=== PATIENT | male | born 1980 | race Caucasian/White ===

== ENCOUNTER 2020-04-03 16:30 | Inpatient (IN) ==
[2020-04-03 17:28] LABS: ABS Lymphocytes 0.5 10^3/ul (1.0-4.8); ABS Neutrophils 1.9 10^3/ul (1.5-7.7); Eosinophil % 0.5 %; Hematocrit 20 % (42-52); Hemoglobin 6.5 g/dL (14.0-18.0); Lymphocyte % 19.6 %; Mean Corpuscular HGB Conc 33 g/dL (31-36); Mean Corpuscular Hemoglobin 33 pg (27-31); Mean Corpuscular Volume 99 fL (80-94); Mean Platelet Volume 8.8 fL (7.4-10.4); Platelet Count 119 10^3/uL (150-450); Red Blood Count 1.99 10^6 /uL (4.18-5.48); Red Cell Distribution Width 15 % (10-15); White Blood Count 2.4 10^3/uL (3.5-10.8)
[2020-04-03 17:40] LABS: ALT 51 U/L (7-52); AST 39 U/L (13-39); Albumin 2.6 g/dL (3.2-5.2); Albumin/Globulin Ratio 1.2 (1-3); Alkaline Phosphatase 54 U/L (34-104); Anion Gap 5 mmol/L (2-11); BUN/Creatinine Ratio 33.7 (8-20); Blood Urea Nitrogen 30 mg/dL (6-24); C Reactive Protein 32.46 mg/L (<8.01); CO2 Carbon Dioxide 26 mmol/L (22-32); Calcium 7.7 mg/dL (8.6-10.3); Chloride 104 mmol/L (101-111); EGFR African American 115.1 (>60); EGFR Non-African American 95.2 (>60); Globulin 2.1 g/dL (2-4); Glucose 97 mg/dL (70-100); Potassium 4.6 mmol/L (3.5-5.0); Sodium 135 mmol/L (135-145); Total Protein 4.7 g/dL (6.4-8.9)
[2020-04-03 17:43] LABS: Activated Partial Thrombo Time 23.4 seconds (26.0-38.0); INR 1.06 (0.82-1.09)
[2020-04-03 17:47] LABS: Troponin I 0.04 ng/mL (<0.03)
[2020-04-03 18:41] LABS: Influenza A Molecular Negative (Negative); Influenza B Molecular Negative (Negative)
[2020-04-03 18:50] LABS: Urine Appearance Clear; Urine Bacteria Absent (Absent); Urine Bilirubin Negative (Negative); Urine Blood Negative (Negative); Urine Cellular Casts Present (Absent); Urine Color Yellow; Urine Glucose 1+(50 mg/dL) (Negative); Urine Ketones Negative (Negative); Urine Nitrite Negative (Negative); Urine Protein Negative (Negative); Urine Red Blood Cell Trace(0-2/hpf) (Absent); Urine Specific Gravity 1.019 (1.010-1.030); Urine Squamous Epithelial Cell Present (Absent); Urine Urobilinogen Negative (Negative); Urine White Blood Cell Trace(0-5/hpf) (Absent)
[2020-04-03] MEDS ORDERED: Ciprofloxacin 400mg IVPREMIX 400 MG/200 ML BAG IVPB ONE (18:59)
[2020-04-03] MEDS ORDERED: Vancomycin 1,500 MG in NS 0.9% 250 ml 250 ML IVPB ONE (18:59)
[2020-04-03] MEDS ORDERED: Cefepime 2 GM in Dextrose 2 GM/50 ML BAG IV ONE (18:59)
[2020-04-03] MEDS ORDERED: NS 0.9% IV ONE (19:00)
[2020-04-03] MEDS ORDERED: Albuterol 2.5mg/3 ml (0.083%) NEB.SOLN INH PRN (21:20)
[2020-04-03] MEDS ORDERED: Vancomycin per Pharmacy 1 EA NOTE FOLLOW UP SCH (22:00)
[2020-04-03] MEDS ORDERED: Cefepime 2 GM in Dextrose 2 GM/50 ML BAG IV SCH (22:00)
[2020-04-04] MEDS: Pantoprazole VIAL 40 MG VIAL IV SCH ×2 (01:51→22:19)
[2020-04-04 08:26] LABS: BUN/Creatinine Ratio 32.1 (8-20); Calcium 7.2 mg/dL (8.6-10.3); EGFR African American 134.1 (>60); EGFR Non-African American 110.8 (>60); Potassium 4.2 mmol/L (3.5-5.0)
[2020-04-04 08:58] LABS: Hematocrit 20 % (42-52); Hemoglobin 6.5 g/dL (14.0-18.0); Mean Corpuscular HGB Conc 33 g/dL (31-36); Mean Corpuscular Hemoglobin 33 pg (27-31); Mean Corpuscular Volume 99 fL (80-94); Red Blood Count 1.98 10^6 /uL (4.18-5.48); Red Cell Distribution Width 15 % (10-15); White Blood Count 1.6 10^3/uL (3.5-10.8)
[2020-04-04] MEDS: Cefepime 2 GM in Dextrose 2 GM/50 ML BAG IV SCH ×2 (09:45→20:46)
[2020-04-04] MEDS: VANCOMYCIN 1250 MG IVPB SCH ×2 (09:45→17:30)
[2020-04-04 10:15] LABS: ABS Lymphocytes 0.6 10^3/ul (1.0-4.8); Lymphocyte % 35.3 %; Mean Platelet Volume 8.2 fL (7.4-10.4); Nucleated Red Blood Cells % 0.1; Platelet Count 77 10^3/uL (150-450)
[2020-04-05] MEDS: VANCOMYCIN 1250 MG IVPB SCH ×2 (01:14→10:45)
[2020-04-05 06:29] LABS: Hematocrit 20 % (42-52); Hemoglobin 6.5 g/dL (14.0-18.0); Mean Corpuscular HGB Conc 33 g/dL (31-36); Mean Corpuscular Hemoglobin 32 pg (27-31); Mean Corpuscular Volume 97 fL (80-94); Mean Platelet Volume 8.9 fL (7.4-10.4); Platelet Count 68 10^3/uL (150-450); Red Blood Count 2.01 10^6 /uL (4.18-5.48); Red Cell Distribution Width 15 % (10-15)
[2020-04-05 06:36] LABS: Anion Gap 4 mmol/L (2-11); BUN/Creatinine Ratio 20.7 (8-20); Blood Urea Nitrogen 17 mg/dL (6-24); CO2 Carbon Dioxide 24 mmol/L (22-32); Calcium 7.5 mg/dL (8.6-10.3); Chloride 108 mmol/L (101-111); EGFR African American 126.6 (>60); EGFR Non-African American 104.6 (>60); Glucose 90 mg/dL (70-100); Magnesium 1.5 mg/dL (1.9-2.7); Sodium 136 mmol/L (135-145)
[2020-04-05] MEDS ORDERED: Magnesium Sulfate IV 3 GM in NS 0.9% 100 ml BAG 100 ML IVPB ONE (06:56)
[2020-04-05 07:53] LABS: ABS Lymphocytes 0.5 10^3/ul (1.0-4.8); ABS Neutrophils 0.4 10^3/ul (1.5-7.7); Eosinophil % 0.4 %; Lymphocyte % 50.6 %; Nucleated Red Blood Cells % 0.2
[2020-04-05 08:01] LABS: ALT 39 U/L (7-52); AST 36 U/L (13-39); Albumin 2.6 g/dL (3.2-5.2); Albumin/Globulin Ratio 1.2 (1-3); Alkaline Phosphatase 52 U/L (34-104); Globulin 2.1 g/dL (2-4); Total Protein 4.7 g/dL (6.4-8.9)
[2020-04-05 08:28] LABS: LDH 289 U/L (140-271)
[2020-04-05] MEDS ORDERED: NS 0.9% 100 ml BAG 100 ML ONE (08:28)
[2020-04-05] MEDS ORDERED: Vancomycin Trough Check NOTE FOLLOW UP ONE (08:30)
[2020-04-05] MEDS: Cefepime 2 GM in Dextrose 2 GM/50 ML BAG IV SCH ×2 (08:42→21:07)
[2020-04-05 09:40] LABS: Vancomycin Trough 19.5 mcg/mL
[2020-04-05 10:53] LABS: % Iron Saturation 64 % (15-55); Iron 139 ug/dL (50-212); Total Iron Binding Capacity 216 mcg/dL (250-450); Transferrin 154 mg/dL (203-362); Unsaturated Iron Binding < 201 ug/dL
[2020-04-05] MEDS: Vancomycin 1000 MG in NS 0.9% 250 ML IVPB SCH (17:40)
[2020-04-05] MEDS: Pantoprazole VIAL 40 MG VIAL IV SCH (21:05)
[2020-04-05 22:33] LABS: Hematocrit 24 % (42-52); Mean Corpuscular HGB Conc 33 g/dL (31-36); Mean Corpuscular Hemoglobin 32 pg (27-31); Mean Corpuscular Volume 95 fL (80-94); Mean Platelet Volume 9.1 fL (7.4-10.4); Platelet Count 57 10^3/uL (150-450); Red Blood Count 2.51 10^6 /uL (4.18-5.48); Red Cell Distribution Width 17 % (10-15); White Blood Count 0.9 10^3/uL (3.5-10.8)
[2020-04-06] MEDS: Vancomycin 1000 MG in NS 0.9% 250 ML IVPB SCH ×2 (01:49→09:43)
[2020-04-06 07:21] LABS: Hematocrit 25 % (42-52); Hemoglobin 8.6 g/dL (14.0-18.0); Mean Corpuscular HGB Conc 34 g/dL (31-36); Mean Corpuscular Hemoglobin 32 pg (27-31); Mean Corpuscular Volume 94 fL (80-94); Mean Platelet Volume 9.6 fL (7.4-10.4); Platelet Count 49 10^3/uL (150-450); Red Blood Count 2.66 10^6 /uL (4.18-5.48); Red Cell Distribution Width 18 % (10-15); White Blood Count 0.6 10^3/uL (3.5-10.8)
[2020-04-06 07:28] LABS: BUN/Creatinine Ratio 18.9 (8-20); Calcium 7.4 mg/dL (8.6-10.3); EGFR African American 142.5 (>60); EGFR Non-African American 117.7 (>60); Potassium 3.9 mmol/L (3.5-5.0)
[2020-04-06] MEDS: Cefepime 2 GM in Dextrose 2 GM/50 ML BAG IV SCH ×2 (08:09→21:56)
[2020-04-06 08:14] LABS: Magnesium 1.8 mg/dL (1.9-2.7)
[2020-04-06 08:58] LABS: ABS Neutrophils 0.3 10^3/ul (1.5-7.7)
[2020-04-06] MEDS: Pantoprazole VIAL 40 MG VIAL IV SCH (21:56)
[2020-04-07] MEDS: Pantoprazole VIAL 40 MG VIAL IV SCH ×2 (00:52→22:39)
[2020-04-07] MEDS: Cefepime 2 GM in Dextrose 2 GM/50 ML BAG IV SCH ×3 (00:52→12:26)
[2020-04-07] MEDS ORDERED: Magnesium Sulfate 2 gm BAG 2 GM/50 ML BAG IVPB ONE (06:58)
[2020-04-07 07:25] LABS: Albumin 2.6 g/dL (3.2-5.2); Albumin/Globulin Ratio 1.2 (1-3); BUN/Creatinine Ratio 18.8 (8-20); Calcium 7.4 mg/dL (8.6-10.3); EGFR African American 168.5 (>60); EGFR Non-African American 139.2 (>60); Globulin 2.1 g/dL (2-4); Magnesium 1.5 mg/dL (1.9-2.7); Total Bilirubin 0.6 mg/dL (0.2-1.0); Total Protein 4.7 g/dL (6.4-8.9)
[2020-04-07 09:19] LABS: ABS Lymphocytes 0.5 10^3/ul (1.0-4.8); ABS Monocytes 0.1 10^3/ul (0-0.8); Hematocrit 24 % (42-52); Hemoglobin 8.2 g/dL (14.0-18.0); Lymphocyte % 77.6 %; Mean Corpuscular HGB Conc 34 g/dL (31-36); Mean Corpuscular Hemoglobin 31 pg (27-31); Mean Corpuscular Volume 93 fL (80-94); Mean Platelet Volume 9.2 fL (7.4-10.4); Platelet Count 29 10^3/uL (150-450); Red Blood Count 2.63 10^6 /uL (4.18-5.48); Red Cell Distribution Width 17 % (10-15); White Blood Count 0.6 10^3/uL (3.5-10.8)
[2020-04-07] MEDS ORDERED: Buffered Lidocaine 1% SYRIN 1 ml INTRADERM ONE (09:21)
[2020-04-07] MEDS ORDERED: Magnesium Sulfate 2 GM IV (Premix) IVPB ONE (13:00)
[2020-04-08] MEDS: Cefepime 2 GM in Dextrose 2 GM/50 ML BAG IV SCH ×2 (00:37→11:21)
[2020-04-08 11:50] LABS: Calcium 7.6 mg/dL (8.6-10.3); Magnesium 1.6 mg/dL (1.9-2.7); Potassium 4.2 mmol/L (3.5-5.0)
[2020-04-08 11:55] LABS: BUN/Creatinine Ratio 14.9 (8-20); EGFR African American 159.8 (>60); EGFR Non-African American 132.1 (>60)
[2020-04-08 13:00] LABS: Hematocrit 25 % (42-52); Hemoglobin 8.5 g/dL (14.0-18.0); Mean Corpuscular HGB Conc 34 g/dL (31-36); Mean Corpuscular Hemoglobin 31 pg (27-31); Mean Corpuscular Volume 92 fL (80-94); Mean Platelet Volume 8.2 fL (7.4-10.4); Platelet Count 16 10^3/uL (150-450); Red Blood Count 2.71 10^6 /uL (4.18-5.48); Red Cell Distribution Width 17 % (10-15); White Blood Count 0.6 10^3/uL (3.5-10.8)
[2020-04-08 14:41] LABS: ABS Lymphocytes 0.5 10^3/ul (1.0-4.8); ABS Monocytes 0.1 10^3/ul (0-0.8); Eosinophil % 0.1 %; Lymphocyte % 78.1 %
[2020-04-09] MEDS: Cefepime 2 GM in Dextrose 2 GM/50 ML BAG IV SCH ×3 (01:13→14:22)
[2020-04-09 06:11] LABS: BUN/Creatinine Ratio 17.9 (8-20); Calcium 8.1 mg/dL (8.6-10.3); EGFR African American 159.8 (>60); EGFR Non-African American 132.1 (>60); Magnesium 1.5 mg/dL (1.9-2.7); Potassium 4.1 mmol/L (3.5-5.0)
[2020-04-09 06:16] LABS: ABS Lymphocytes 0.6 10^3/ul (1.0-4.8); ABS Monocytes 0.1 10^3/ul (0-0.8); Hematocrit 23 % (42-52); Hemoglobin 7.6 g/dL (14.0-18.0); Lymphocyte % 80.4 %; Mean Corpuscular HGB Conc 34 g/dL (31-36); Mean Corpuscular Hemoglobin 31 pg (27-31); Mean Corpuscular Volume 92 fL (80-94); Mean Platelet Volume 8.8 fL (7.4-10.4); Platelet Count 10 10^3/uL (150-450); Red Blood Count 2.46 10^6 /uL (4.18-5.48); Red Cell Distribution Width 17 % (10-15); White Blood Count 0.7 10^3/uL (3.5-10.8)
[2020-04-09] MEDS ORDERED: Magnesium Sulfate IV 3 GM in NS 0.9% 100 ml BAG 100 ML IVPB ONE (08:00)
[2020-04-09 14:58] LABS: Mean Platelet Volume 7.1 fL (7.4-10.4); Platelet Count 40 10^3/uL (150-450)
[2020-04-10] MEDS: Cefepime 2 GM in Dextrose 2 GM/50 ML BAG IV SCH ×2 (02:52→15:43)
[2020-04-10 07:33] LABS: ABS Lymphocytes 0.6 10^3/ul (1.0-4.8); ABS Monocytes 0.2 10^3/ul (0-0.8); ABS Neutrophils 0.2 10^3/ul (1.5-7.7); Eosinophil % 0.2 %; Hematocrit 24 % (42-52); Hemoglobin 8.4 g/dL (14.0-18.0); Lymphocyte % 64.8 %; Mean Corpuscular HGB Conc 34 g/dL (31-36); Mean Corpuscular Hemoglobin 31 pg (27-31); Mean Corpuscular Volume 91 fL (80-94); Mean Platelet Volume 7.3 fL (7.4-10.4); Nucleated Red Blood Cells % 0.2; Platelet Count 28 10^3/uL (150-450); Red Blood Count 2.69 10^6 /uL (4.18-5.48); Red Cell Distribution Width 17 % (10-15)
[2020-04-10 07:41] LABS: BUN/Creatinine Ratio 20.3 (8-20); Calcium 8.3 mg/dL (8.6-10.3); EGFR African American 154.5 (>60); EGFR Non-African American 127.6 (>60); Magnesium 1.7 mg/dL (1.9-2.7); Potassium 4.3 mmol/L (3.5-5.0)
[2020-04-10] MEDS ORDERED: Magnesium Sulfate 2 gm BAG 2 GM/50 ML BAG IVPB ONE (07:42)
[2020-04-11] MEDS: Cefepime 2 GM in Dextrose 2 GM/50 ML BAG IV SCH ×2 (03:25→16:26)
[2020-04-11 07:25] LABS: ABS Lymphocytes 0.6 10^3/ul (1.0-4.8); ABS Monocytes 0.1 10^3/ul (0-0.8); ABS Neutrophils 0.3 10^3/ul (1.5-7.7); Hematocrit 23 % (42-52); Hemoglobin 7.8 g/dL (14.0-18.0); Lymphocyte % 59.2 %; Mean Corpuscular HGB Conc 34 g/dL (31-36); Mean Corpuscular Hemoglobin 31 pg (27-31); Mean Corpuscular Volume 91 fL (80-94); Mean Platelet Volume 7.1 fL (7.4-10.4); Nucleated Red Blood Cells % 0.2; Platelet Count 21 10^3/uL (150-450); Red Blood Count 2.52 10^6 /uL (4.18-5.48); Red Cell Distribution Width 17 % (10-15)
[2020-04-11] MEDS ORDERED: Magnesium Sulfate IV 3 GM in NS 0.9% 100 ml BAG 100 ML IVPB ONE (08:00)
[2020-04-12] MEDS: Cefepime 2 GM in Dextrose 2 GM/50 ML BAG IV SCH ×2 (03:28→15:30)
[2020-04-12 09:51] LABS: Hematocrit 28 % (42-52); Hemoglobin 9.1 g/dL (14.0-18.0); Mean Corpuscular HGB Conc 32 g/dL (31-36); Mean Corpuscular Hemoglobin 31 pg (27-31); Mean Corpuscular Volume 95 fL (80-94); Mean Platelet Volume 8.5 fL (7.4-10.4); Platelet Count 37 10^3/uL (150-450); Red Blood Count 2.97 10^6 /uL (4.18-5.48); Red Cell Distribution Width 17 % (10-15); White Blood Count 1.5 10^3/uL (3.5-10.8)
[2020-04-12 10:15] LABS: ABS Lymphocytes 0.9 10^3/ul (1.0-4.8); ABS Monocytes 0.2 10^3/ul (0-0.8); ABS Neutrophils 0.4 10^3/ul (1.5-7.7); Eosinophil % 1.6 %; Lymphocyte % 57.9 %
[2020-04-13] MEDS: Cefepime 2 GM in Dextrose 2 GM/50 ML BAG IV SCH ×2 (03:13→15:34)
[2020-04-13 06:57] LABS: Hematocrit 26 % (42-52); Hemoglobin 8.7 g/dL (14.0-18.0); Mean Corpuscular HGB Conc 34 g/dL (31-36); Mean Corpuscular Hemoglobin 31 pg (27-31); Mean Corpuscular Volume 92 fL (80-94); Mean Platelet Volume 8.4 fL (7.4-10.4); Platelet Count 53 10^3/uL (150-450); Red Blood Count 2.79 10^6 /uL (4.18-5.48); Red Cell Distribution Width 16 % (10-15); White Blood Count 1.5 10^3/uL (3.5-10.8)
[2020-04-13 07:31] LABS: ABS Lymphocytes 0.8 10^3/ul (1.0-4.8); ABS Monocytes 0.2 10^3/ul (0-0.8); ABS Neutrophils 0.5 10^3/ul (1.5-7.7); Eosinophil % 0.1 %; Lymphocyte % 53.2 %; Nucleated Red Blood Cells % 0.1
[2020-04-14] MEDS: Cefepime 2 GM in Dextrose 2 GM/50 ML BAG IV SCH ×2 (02:53→14:59)
[2020-04-14 07:13] LABS: Hematocrit 27 % (42-52); Mean Corpuscular HGB Conc 34 g/dL (31-36); Mean Corpuscular Hemoglobin 31 pg (27-31); Mean Corpuscular Volume 92 fL (80-94); Mean Platelet Volume 8.4 fL (7.4-10.4); Platelet Count 107 10^3/uL (150-450); Red Blood Count 2.87 10^6 /uL (4.18-5.48); Red Cell Distribution Width 16 % (10-15); White Blood Count 1.5 10^3/uL (3.5-10.8)
[2020-04-14 07:17] LABS: ABS Neutrophils 0.6 10^3/ul (1.5-7.7)
[2020-04-14 08:39] LABS: ABS Lymphocytes 0.6 10^3/ul (1.0-4.8); ABS Monocytes 0.2 10^3/ul (0-0.8); Eosinophil % 0.1 %; Lymphocyte % 43.8 %; Nucleated Red Blood Cells % 0.2
[2020-04-15] MEDS: Cefepime 2 GM in Dextrose 2 GM/50 ML BAG IV SCH ×2 (03:02→15:18)
[2020-04-15 05:40] LABS: Hematocrit 27 % (42-52); Hemoglobin 9.2 g/dL (14.0-18.0); Mean Corpuscular HGB Conc 34 g/dL (31-36); Mean Corpuscular Hemoglobin 31 pg (27-31); Mean Corpuscular Volume 91 fL (80-94); Platelet Count 181 10^3/uL (150-450); Red Blood Count 2.95 10^6 /uL (4.18-5.48); Red Cell Distribution Width 17 % (10-15); White Blood Count 1.8 10^3/uL (3.5-10.8)
[2020-04-15 06:16] LABS: ABS Lymphocytes 0.6 10^3/ul (1.0-4.8); ABS Monocytes 0.3 10^3/ul (0-0.8); ABS Neutrophils 0.9 10^3/ul (1.5-7.7); Eosinophil % 0.5 %; Lymphocyte % 34.5 %; Nucleated Red Blood Cells % 0.5
[2020-04-16] MEDS: Cefepime 2 GM in Dextrose 2 GM/50 ML BAG IV SCH (03:06)
[2020-04-16 06:29] LABS: ABS Lymphocytes 0.5 10^3/ul (1.0-4.8); ABS Monocytes 0.3 10^3/ul (0-0.8); ABS Neutrophils 1.1 10^3/ul (1.5-7.7); Eosinophil % 0.5 %; Hematocrit 27 % (42-52); Hemoglobin 9.2 g/dL (14.0-18.0); Mean Corpuscular HGB Conc 34 g/dL (31-36); Mean Corpuscular Hemoglobin 31 pg (27-31); Mean Corpuscular Volume 91 fL (80-94); Mean Platelet Volume 7.9 fL (7.4-10.4); Nucleated Red Blood Cells % 0.2; Platelet Count 256 10^3/uL (150-450); Red Blood Count 2.95 10^6 /uL (4.18-5.48); Red Cell Distribution Width 17 % (10-15); White Blood Count 1.9 10^3/uL (3.5-10.8)
[2020-04-16] MEDS ORDERED: Ondansetron 4 mg VIAL 2 MG/ML 2 ml VIAL IV PRN (14:29)
[2020-04-16] MEDS: Prochlorperazine 5 mg/ml 2 ml VIAL (10 mg) IV PRN (22:54)
[2020-04-17 05:45] LABS: ABS Lymphocytes 0.5 10^3/ul (1.0-4.8); ABS Monocytes 0.5 10^3/ul (0-0.8); ABS Neutrophils 1.4 10^3/ul (1.5-7.7); Eosinophil % 0.4 %; Hematocrit 27 % (42-52); Hemoglobin 9.4 g/dL (14.0-18.0); Lymphocyte % 19.8 %; Mean Corpuscular HGB Conc 34 g/dL (31-36); Mean Corpuscular Hemoglobin 31 pg (27-31); Mean Corpuscular Volume 90 fL (80-94); Mean Platelet Volume 7.5 fL (7.4-10.4); Nucleated Red Blood Cells % 0.1; Platelet Count 355 10^3/uL (150-450); Red Blood Count 3.03 10^6 /uL (4.18-5.48); Red Cell Distribution Width 17 % (10-15); White Blood Count 2.4 10^3/uL (3.5-10.8)
[2020-04-17] MEDS ORDERED: Magnesium Sulfate IV 3 GM in NS 0.9% 100 ml BAG 100 ML IVPB ONE (07:30)
[2020-04-17] MEDS: Enoxaparin 40 MG/0.4 ML SYR SUBCUT SCH (09:00)
[2020-04-17] MEDS: Prochlorperazine 5 mg/ml 2 ml VIAL (10 mg) IV PRN ×2 (12:52→20:22)
[2020-04-17] MEDS: Polyethylene Glycol 3350 17 GM PACKET PO PRN (12:52)
[2020-04-18 09:01] LABS: ABS Lymphocytes 0.4 10^3/ul (1.0-4.8); ABS Monocytes 0.6 10^3/ul (0-0.8); ABS Neutrophils 3.1 10^3/ul (1.5-7.7); Eosinophil % 0.3 %; Hematocrit 29 % (42-52); Hemoglobin 9.9 g/dL (14.0-18.0); Lymphocyte % 8.9 %; Mean Corpuscular HGB Conc 34 g/dL (31-36); Mean Corpuscular Hemoglobin 31 pg (27-31); Mean Corpuscular Volume 90 fL (80-94); Mean Platelet Volume 7.5 fL (7.4-10.4); Platelet Count 514 10^3/uL (150-450); Red Blood Count 3.24 10^6 /uL (4.18-5.48); Red Cell Distribution Width 17 % (10-15)
[2020-04-18] MEDS: Enoxaparin 40 MG/0.4 ML SYR SUBCUT SCH (09:06)
[2020-04-18] MEDS: Dexamethasone IV 4 MG/ML VIAL 1 ml VIAL IV SLOW PU SCH (11:37)
[2020-04-18] MEDS: Polyethylene Glycol 3350 17 GM PACKET PO PRN (21:18)
[2020-04-19 05:53] LABS: ABS Lymphocytes 0.5 10^3/ul (1.0-4.8); ABS Monocytes 0.7 10^3/ul (0-0.8); ABS Neutrophils 3.1 10^3/ul (1.5-7.7); Eosinophil % 0.2 %; Hematocrit 27 % (42-52); Hemoglobin 9.4 g/dL (14.0-18.0); Lymphocyte % 11.4 %; Mean Corpuscular HGB Conc 35 g/dL (31-36); Mean Corpuscular Hemoglobin 31 pg (27-31); Mean Corpuscular Volume 90 fL (80-94); Mean Platelet Volume 7.6 fL (7.4-10.4); Platelet Count 584 10^3/uL (150-450); Red Blood Count 3.02 10^6 /uL (4.18-5.48); Red Cell Distribution Width 17 % (10-15); White Blood Count 4.3 10^3/uL (3.5-10.8)
[2020-04-19] MEDS ORDERED: Magnesium Sulfate 2 gm BAG 2 GM/50 ML BAG IVPB ONE (07:45)
[2020-04-19] MEDS: Enoxaparin 40 MG/0.4 ML SYR SUBCUT SCH (09:04)
[2020-04-19] MEDS: Dexamethasone IV 4 MG/ML VIAL 1 ml VIAL IV SLOW PU SCH (09:09)
[2020-04-19 10:30] LABS: BUN/Creatinine Ratio 28.3 (8-20); Calcium 9.4 mg/dL (8.6-10.3); EGFR African American 110.8 (>60); EGFR Non-African American 91.6 (>60); Potassium 4.2 mmol/L (3.5-5.0)
[2020-04-19 19:57] VITALS: BP 150/89
[2020-04-20] MEDS ORDERED: Scopolamine PATCH Remove NOTE PATCH OFF SCH (16:00)
== END 2020-04-19 20:20 | DRG 871 ==
LOC: ED 16:30 → MED 23:26
PROVIDERS: ADMIT Hospitalist; ATTEND Internal Medicine

== ENCOUNTER 2020-04-20 22:39 | Inpatient (IN) ==
[2020-04-20] MEDS ORDERED: Prochlorperazine 5 mg/ml 2 ml VIAL (10 mg) IV ONE (23:02)
[2020-04-20] MEDS ORDERED: NS 0.9% 1000 ml BAG 2,000 ML IV ONE (23:02)
[2020-04-21 00:19] LABS: ABS Lymphocytes 0.4 10^3/ul (1.0-4.8); ABS Monocytes 1.2 10^3/ul (0-0.8); ABS Neutrophils 4.5 10^3/ul (1.5-7.7); Eosinophil % 0.3 %; Hematocrit 30 % (42-52); Hemoglobin 10.1 g/dL (14.0-18.0); Lymphocyte % 6.2 %; Mean Corpuscular HGB Conc 34 g/dL (31-36); Mean Corpuscular Hemoglobin 30 pg (27-31); Mean Corpuscular Volume 90 fL (80-94); Mean Platelet Volume 7.7 fL (7.4-10.4); Platelet Count 587 10^3/uL (150-450); Red Blood Count 3.33 10^6 /uL (4.18-5.48); Red Cell Distribution Width 17 % (10-15)
[2020-04-21 00:28] LABS: Activated Partial Thrombo Time 28.5 seconds (26.0-38.0); INR 1.17 (0.82-1.09)
[2020-04-21 00:38] LABS: ALT 11 U/L (7-52); AST 16 U/L (13-39); Albumin 3.6 g/dL (3.2-5.2); Albumin/Globulin Ratio 1.1 (1-3); Alkaline Phosphatase 64 U/L (34-104); Anion Gap 10 mmol/L (2-11); Blood Urea Nitrogen 37 mg/dL (6-24); CO2 Carbon Dioxide 26 mmol/L (22-32); Chloride 98 mmol/L (101-111); EGFR African American 52.4 (>60); EGFR Non-African American 43.3 (>60); Globulin 3.4 g/dL (2-4); Glucose 94 mg/dL (70-100); Potassium 4.6 mmol/L (3.5-5.0); Sodium 134 mmol/L (135-145)
[2020-04-21 00:45] LABS: Troponin I 0.05 ng/mL (<0.03)
[2020-04-21] MEDS ORDERED: metroNIDAZOLE IV 500 MG/100ML 500 MG/100 ML BAG IVPB ONE (01:45)
[2020-04-21] MEDS ORDERED: Cefepime 2 GM in NS 0.9% 50 ML 50 ML IVPB ONE (01:45)
[2020-04-21] MEDS ORDERED: Cefepime 2 GM in Dextrose 2 GM/50 ML BAG IV ONE (02:00)
[2020-04-21] MEDS ORDERED: Vancomycin 1,500 MG in NS 0.9% 250 ml 250 ML IVPB ONE (02:30)
[2020-04-21] MEDS ORDERED: NS 0.9% 1000 ml BAG 1,000 ML IV SCH (02:45)
[2020-04-21 02:46] LABS: Urine Appearance Cloudy; Urine Bilirubin Negative (Negative); Urine Blood Negative (Negative); Urine Color Yellow; Urine Glucose Negative (Negative); Urine Ketones Negative (Negative); Urine Nitrite Negative (Negative); Urine Protein Negative (Negative); Urine Specific Gravity 1.016 (1.010-1.030); Urine Urobilinogen Negative (Negative)
[2020-04-21] MEDS ORDERED: Vancomycin per Pharmacy 1 EA NOTE FOLLOW UP SCH (03:00)
[2020-04-21] MEDS ORDERED: Polyethylene Glycol 3350 17 GM PACKET PO PRN (03:35)
[2020-04-21] MEDS ORDERED: Magic MouthWash1-BEN/MAAL/LIDO 180 ML BTL SWISH SPIT PRN (03:55)
[2020-04-21 07:00] LABS: ABS Lymphocytes 0.2 10^3/ul (1.0-4.8); ABS Monocytes 0.8 10^3/ul (0-0.8); ABS Neutrophils 5.2 10^3/ul (1.5-7.7); Eosinophil % 0.4 %; Hematocrit 26 % (42-52); Hemoglobin 8.9 g/dL (14.0-18.0); Lymphocyte % 3.1 %; Mean Corpuscular HGB Conc 34 g/dL (31-36); Mean Corpuscular Hemoglobin 31 pg (27-31); Mean Corpuscular Volume 91 fL (80-94); Mean Platelet Volume 7.5 fL (7.4-10.4); Platelet Count 474 10^3/uL (150-450); Red Blood Count 2.86 10^6 /uL (4.18-5.48); Red Cell Distribution Width 18 % (10-15); White Blood Count 6.3 10^3/uL (3.5-10.8)
[2020-04-21 07:03] LABS: C Reactive Protein 90.61 mg/L (<8.01); Magnesium 1.8 mg/dL (1.9-2.7)
[2020-04-21 07:16] LABS: BUN/Creatinine Ratio 18.3 (8-20); Calcium 8.2 mg/dL (8.6-10.3); EGFR African American 49.2 (>60); EGFR Non-African American 40.6 (>60); Potassium 4.5 mmol/L (3.5-5.0)
[2020-04-21] MEDS ORDERED: Magnesium Sulfate 2 gm BAG 2 GM/50 ML BAG IVPB ONE (08:15)
[2020-04-21] MEDS: Dexamethasone IV 4 MG/ML VIAL 1 ml VIAL IV SLOW PU SCH (09:31)
[2020-04-21] MEDS: Enoxaparin 40 MG/0.4 ML SYR SUBCUT SCH (09:31)
[2020-04-21] MEDS: Sucralfate 1 gm SUSP 1 GM/10 ML UDC PO SCH ×3 (09:32→18:29)
[2020-04-21] MEDS ORDERED: Cefepime 2 GM in Dextrose 2 GM/50 ML BAG IV SCH (14:00)
[2020-04-21] MEDS: Vancomycin 1000 MG in NS 0.9% 250 ML IVPB SCH (16:55)
[2020-04-21 23:52] LABS: Urine Creatinine Concentration 77.17 mg/dL
[2020-04-22] MEDS ORDERED: Cefepime 2 GM in NS 0.9% 50 ML 50 ML IVPB SCH (02:00)
[2020-04-22] MEDS ORDERED: Cefepime 2 GM in Dextrose 2 GM/50 ML BAG IV SCH (03:00)
[2020-04-22] MEDS: Vancomycin 1000 MG in NS 0.9% 250 ML IVPB SCH (03:06)
[2020-04-22 06:50] LABS: Influenza A Molecular Negative (Negative); Influenza B Molecular Negative (Negative)
[2020-04-22 07:18] LABS: Hematocrit 27 % (42-52); Mean Corpuscular HGB Conc 34 g/dL (31-36); Mean Corpuscular Hemoglobin 31 pg (27-31); Mean Corpuscular Volume 91 fL (80-94); Mean Platelet Volume 7.9 fL (7.4-10.4); Platelet Count 484 10^3/uL (150-450); Red Blood Count 2.91 10^6 /uL (4.18-5.48); Red Cell Distribution Width 17 % (10-15); White Blood Count 5.3 10^3/uL (3.5-10.8)
[2020-04-22 07:27] LABS: BUN/Creatinine Ratio 16.5 (8-20); Calcium 8.6 mg/dL (8.6-10.3); EGFR African American 35.1 (>60); Magnesium 2.3 mg/dL (1.9-2.7); Potassium 4.8 mmol/L (3.5-5.0)
[2020-04-22] MEDS ORDERED: D5NS 0.9% 1000 ml BAG 1,000 ML IV SCH (08:00)
[2020-04-22 09:10] LABS: ABS Eosinophils 0.1 10^3/ul (0-0.6); ABS Lymphocytes 0.2 10^3/ul (1.0-4.8); ABS Monocytes 0.9 10^3/ul (0-0.8); ABS Neutrophils 4.1 10^3/ul (1.5-7.7)
[2020-04-22] MEDS ORDERED: NS 0.9% 1000 ml BAG 1,000 ML IV SCH (10:00)
[2020-04-22] MEDS: Dexamethasone IV 4 MG/ML VIAL 1 ml VIAL IV SLOW PU SCH ×2 (10:08→11:37)
[2020-04-22] MEDS: Prochlorperazine 5 mg/ml 2 ml VIAL (10 mg) IV PRN ×2 (10:08→11:37)
[2020-04-22] MEDS: Enoxaparin 40 MG/0.4 ML SYR SUBCUT SCH (10:10)
[2020-04-22] MEDS: Sucralfate 1 gm SUSP 1 GM/10 ML UDC PO SCH ×3 (10:11→17:04)
[2020-04-22] MEDS: NS 0.9% 1000 ml BAG 1,000 ML IV SCH ×4 (12:30→22:35)
[2020-04-22] MEDS ORDERED: Metoclopramide 5 MG/ML VIAL (10 mg) IV PRN (12:34)
[2020-04-22] MEDS ORDERED: Vancomycin Trough Check NOTE FOLLOW UP ONE (15:00)
[2020-04-22 15:40] LABS: EGFR African American 27.7 (>60); EGFR Non-African American 22.9 (>60)
[2020-04-22] MEDS: Senna TAB 8.6 mg TAB PO PRN (15:49)
[2020-04-22 15:51] LABS: Urine Appearance Cloudy; Urine Bilirubin Negative (Negative); Urine Blood Negative (Negative); Urine Color Yellow; Urine Glucose 1+(50 mg/dL) (Negative); Urine Ketones Trace (Negative); Urine Nitrite Negative (Negative); Urine Protein Negative (Negative); Urine Specific Gravity 1.012 (1.010-1.030); Urine Urobilinogen Negative (Negative)
[2020-04-22 16:06] LABS: Vancomycin Trough 31.3 mcg/mL
[2020-04-22] MEDS: Ondansetron 4 mg VIAL 2 MG/ML 2 ml VIAL IV PRN (23:41)
[2020-04-23] MEDS: NS 0.9% 1000 ml BAG 1,000 ML IV SCH ×2 (05:13→12:56)
[2020-04-23 07:39] LABS: Hematocrit 26 % (42-52); Hemoglobin 8.8 g/dL (14.0-18.0); Mean Corpuscular HGB Conc 34 g/dL (31-36); Mean Corpuscular Hemoglobin 31 pg (27-31); Mean Corpuscular Volume 91 fL (80-94); Mean Platelet Volume 8.2 fL (7.4-10.4); Platelet Count 508 10^3/uL (150-450); Red Cell Distribution Width 17 % (10-15); White Blood Count 6.5 10^3/uL (3.5-10.8)
[2020-04-23 07:40] LABS: BUN/Creatinine Ratio 12.7 (8-20); Calcium 8.2 mg/dL (8.6-10.3); EGFR African American 19.7 (>60); EGFR Non-African American 16.3 (>60)
[2020-04-23] MEDS: Enoxaparin 40 MG/0.4 ML SYR SUBCUT SCH (08:07)
[2020-04-23] MEDS: Sucralfate 1 gm SUSP 1 GM/10 ML UDC PO SCH ×3 (08:07→16:43)
[2020-04-23] MEDS: Ondansetron 4 mg VIAL 2 MG/ML 2 ml VIAL IV PRN ×3 (08:11→22:30)
[2020-04-23 09:20] LABS: ABS Lymphocytes 0.3 10^3/ul (1.0-4.8); ABS Monocytes 1.2 10^3/ul (0-0.8); ABS Neutrophils 4.9 10^3/ul (1.5-7.7); Eosinophil % 0.7 %; Lymphocyte % 4.7 %; Polychromasia 1+
[2020-04-23 09:54] LABS: Uric Acid 4.8 mg/dL (4.4-7.6)
[2020-04-23] MEDS ORDERED: Levofloxacin 500 MG IVPREMIX 500 MG/100 ML BAG IVPB ONE (14:11)
[2020-04-23] MEDS ORDERED: fentaNYL 100 mcg/2 ml 50 MCG/ML VIAL ONE (14:42)
[2020-04-23] MEDS ORDERED: Midazolam 2 mg/2 ml VIAL 1 mg/ml 2 ml VIAL (2 mg) ONE (14:42)
[2020-04-23] MEDS: Senna TAB 8.6 mg TAB PO PRN ×2 (16:43→21:21)
[2020-04-24] MEDS: Scopolamine PATCH Remove NOTE PATCH OFF SCH (03:32)
[2020-04-24] MEDS: NS 0.9% 1000 ml BAG 1,000 ML IV SCH ×2 (06:08→20:35)
[2020-04-24 07:58] LABS: Hematocrit 28 % (42-52); Hemoglobin 9.4 g/dL (14.0-18.0); Mean Corpuscular HGB Conc 34 g/dL (31-36); Mean Corpuscular Hemoglobin 30 pg (27-31); Mean Corpuscular Volume 90 fL (80-94); Mean Platelet Volume 7.8 fL (7.4-10.4); Platelet Count 483 10^3/uL (150-450); Red Blood Count 3.11 10^6 /uL (4.18-5.48); Red Cell Distribution Width 18 % (10-15); White Blood Count 5.5 10^3/uL (3.5-10.8)
[2020-04-24] MEDS: Enoxaparin 30 MG/0.3 ML SYR SUBCUT SCH (08:08)
[2020-04-24 08:09] LABS: BUN/Creatinine Ratio 18.5 (8-20); Calcium 8.6 mg/dL (8.6-10.3); EGFR African American 38.9 (>60); EGFR Non-African American 32.1 (>60); Magnesium 1.6 mg/dL (1.9-2.7)
[2020-04-24] MEDS: Sucralfate 1 gm SUSP 1 GM/10 ML UDC PO SCH ×3 (08:09→18:20)
[2020-04-24 08:11] LABS: Potassium 5.3 mmol/L (3.5-5.0)
[2020-04-24 08:52] LABS: ABS Eosinophils 0.1 10^3/ul (0-0.6); ABS Lymphocytes 0.4 10^3/ul (1.0-4.8); Eosinophil % 1.7 %; Lymphocyte % 6.8 %; Nucleated Red Blood Cells % 0.1
[2020-04-24] MEDS ORDERED: Magnesium Sulfate 2 gm BAG 2 GM/50 ML BAG IVPB ONE (18:27)
[2020-04-25 06:07] LABS: Hematocrit 26 % (42-52); Hemoglobin 9.1 g/dL (14.0-18.0); Mean Corpuscular HGB Conc 35 g/dL (31-36); Mean Corpuscular Hemoglobin 31 pg (27-31); Mean Corpuscular Volume 90 fL (80-94); Mean Platelet Volume 7.9 fL (7.4-10.4); Platelet Count 435 10^3/uL (150-450); Red Blood Count 2.94 10^6 /uL (4.18-5.48); Red Cell Distribution Width 17 % (10-15); White Blood Count 6.4 10^3/uL (3.5-10.8)
[2020-04-25 06:17] LABS: BUN/Creatinine Ratio 26.4 (8-20); Calcium 8.2 mg/dL (8.6-10.3); EGFR African American 89.7 (>60); EGFR Non-African American 74.1 (>60); Magnesium 1.6 mg/dL (1.9-2.7)
[2020-04-25 06:21] LABS: Potassium 5.1 mmol/L (3.5-5.0)
[2020-04-25 06:24] LABS: ABS Eosinophils 0.2 10^3/ul (0-0.6); ABS Lymphocytes 0.6 10^3/ul (1.0-4.8); ABS Monocytes 1.2 10^3/ul (0-0.8); ABS Neutrophils 4.4 10^3/ul (1.5-7.7); Nucleated Red Blood Cells % 0.1
[2020-04-25] MEDS ORDERED: Magnesium Sulfate 2 gm BAG 2 GM/50 ML BAG IVPB ONE (06:59)
[2020-04-25] MEDS: Enoxaparin 30 MG/0.3 ML SYR SUBCUT SCH (08:02)
[2020-04-25] MEDS: Sucralfate 1 gm SUSP 1 GM/10 ML UDC PO SCH ×3 (08:02→17:18)
[2020-04-25] MEDS: NS 0.9% 1000 ml BAG 1,000 ML IV SCH ×2 (09:47→20:35)
[2020-04-25] MEDS: Ondansetron 4 mg VIAL 2 MG/ML 2 ml VIAL IV PRN ×2 (11:32→20:40)
[2020-04-26 06:00] LABS: Hematocrit 26 % (42-52); Hemoglobin 8.7 g/dL (14.0-18.0); Mean Corpuscular HGB Conc 34 g/dL (31-36); Mean Corpuscular Hemoglobin 31 pg (27-31); Mean Corpuscular Volume 90 fL (80-94); Mean Platelet Volume 8.2 fL (7.4-10.4); Platelet Count 389 10^3/uL (150-450); Red Blood Count 2.86 10^6 /uL (4.18-5.48); Red Cell Distribution Width 17 % (10-15); White Blood Count 7.7 10^3/uL (3.5-10.8)
[2020-04-26] MEDS: NS 0.9% 1000 ml BAG 1,000 ML IV SCH (06:20)
[2020-04-26 06:21] LABS: BUN/Creatinine Ratio 23.9 (8-20); Calcium 8.2 mg/dL (8.6-10.3); EGFR African American 116.1 (>60); EGFR Non-African American 95.9 (>60); Magnesium 1.4 mg/dL (1.9-2.7); Potassium 4.9 mmol/L (3.5-5.0)
[2020-04-26 06:43] LABS: ABS Eosinophils 0.2 10^3/ul (0-0.6); ABS Lymphocytes 0.6 10^3/ul (1.0-4.8); ABS Monocytes 1.3 10^3/ul (0-0.8); ABS Neutrophils 5.5 10^3/ul (1.5-7.7); Eosinophil % 3.1 %
[2020-04-26] MEDS ORDERED: Iodixanol (CONTRAST) 320 MG/ML 100 ML SDV IV SCH (07:20)
[2020-04-26] MEDS ORDERED: Enoxaparin 40 MG/0.4 ML SYR SUBCUT SCH (08:00)
[2020-04-26] MEDS: Sucralfate 1 gm SUSP 1 GM/10 ML UDC PO SCH ×3 (08:32→18:13)
[2020-04-26] MEDS: Ondansetron 4 mg VIAL 2 MG/ML 2 ml VIAL IV PRN (11:42)
[2020-04-26] MEDS ORDERED: Enoxaparin 60 MG/0.6 ML SYR SUBCUT ONE (12:00)
[2020-04-26] MEDS ORDERED: Magnesium Sulf 4 GM/100 ML IV 4,000 MG/100 ML BAG IVPB ONE (16:52)
[2020-04-26] MEDS: Enoxaparin 80 MG/0.8 ML SYR SUBCUT SCH (21:13)
[2020-04-27] MEDS: Scopolamine PATCH Remove NOTE PATCH OFF SCH (03:35)
[2020-04-27 06:22] LABS: Hematocrit 28 % (42-52); Hemoglobin 9.3 g/dL (14.0-18.0); Mean Corpuscular HGB Conc 33 g/dL (31-36); Mean Corpuscular Hemoglobin 30 pg (27-31); Mean Corpuscular Volume 90 fL (80-94); Platelet Count 373 10^3/uL (150-450); Red Blood Count 3.09 10^6 /uL (4.18-5.48); Red Cell Distribution Width 18 % (10-15)
[2020-04-27 06:43] LABS: BUN/Creatinine Ratio 19.8 (8-20); Calcium 8.3 mg/dL (8.6-10.3); EGFR African American 127.7 (>60); EGFR Non-African American 105.5 (>60); Magnesium 1.8 mg/dL (1.9-2.7); Potassium 4.8 mmol/L (3.5-5.0)
[2020-04-27] MEDS ORDERED: Magnesium Sulfate IV 1GM/100ML 1 GM/100 ML BAG IV ONE (06:48)
[2020-04-27] MEDS: Enoxaparin 80 MG/0.8 ML SYR SUBCUT SCH ×2 (07:16→20:55)
[2020-04-27] MEDS: Sucralfate 1 gm SUSP 1 GM/10 ML UDC PO SCH ×3 (07:16→17:21)
[2020-04-27 08:30] LABS: ABS Basophils 0.1 10^3/ul (0-0.2); ABS Eosinophils 0.3 10^3/ul (0-0.6); ABS Lymphocytes 0.8 10^3/ul (1.0-4.8); ABS Monocytes 1.4 10^3/ul (0-0.8); ABS Neutrophils 8.4 10^3/ul (1.5-7.7); Eosinophil % 2.4 %; Lymphocyte % 7.4 %
[2020-04-27] MEDS ORDERED: Magic MouthWash1-BEN/MAAL/LIDO 180 ML BTL SWISH SWAL PRN (10:00)
[2020-04-27] MEDS: Polyethylene Glycol 3350 17 GM PACKET PO SCH (10:54)
[2020-04-27] MEDS: Ondansetron 4 mg VIAL 2 MG/ML 2 ml VIAL IV PRN (13:39)
[2020-04-27] MEDS: Senna TAB 8.6 mg TAB PO SCH (20:53)
[2020-04-28] MEDS: Sucralfate 1 gm SUSP 1 GM/10 ML UDC PO SCH ×3 (07:50→16:44)
[2020-04-28] MEDS: Polyethylene Glycol 3350 17 GM PACKET PO SCH (07:51)
[2020-04-28] MEDS: Senna TAB 8.6 mg TAB PO SCH ×2 (07:52→20:38)
[2020-04-28] MEDS: Enoxaparin 80 MG/0.8 ML SYR SUBCUT SCH ×2 (07:53→20:39)
[2020-04-28] MEDS ORDERED: Magnesium CITRATE LIQ 300 ML BTL PO ONE (09:14)
[2020-04-28 09:18] LABS: Hematocrit 28 % (42-52); Hemoglobin 9.4 g/dL (14.0-18.0); Mean Corpuscular HGB Conc 33 g/dL (31-36); Mean Corpuscular Hemoglobin 30 pg (27-31); Mean Corpuscular Volume 90 fL (80-94); Mean Platelet Volume 8.5 fL (7.4-10.4); Platelet Count 342 10^3/uL (150-450); Red Blood Count 3.13 10^6 /uL (4.18-5.48); Red Cell Distribution Width 18 % (10-15); White Blood Count 11.3 10^3/uL (3.5-10.8)
[2020-04-28 09:34] LABS: BUN/Creatinine Ratio 17.8 (8-20); Blood Urea Nitrogen 16 mg/dL (6-24); CO2 Carbon Dioxide 27 mmol/L (22-32); Calcium 8.5 mg/dL (8.6-10.3); Chloride 102 mmol/L (101-111); EGFR African American 113.1 (>60); EGFR Non-African American 93.5 (>60); Glucose 109 mg/dL (70-100); Magnesium 1.6 mg/dL (1.9-2.7); Sodium 134 mmol/L (135-145)
[2020-04-28] MEDS: NS 0.9% 1000 ml BAG 1,000 ML IV SCH (11:08)
[2020-04-28 11:27] LABS: Anion Gap 5 mmol/L (2-11)
[2020-04-28] MEDS ORDERED: Magnesium Sulfate 2 gm BAG 2 GM/50 ML BAG IVPB ONE (15:00)
[2020-04-28] MEDS: Dexamethasone IV 4 MG/ML VIAL 1 ml VIAL IV SLOW PU SCH (16:44)
[2020-04-29] MEDS: NS 0.9% 1000 ml BAG 1,000 ML IV SCH (01:14)
[2020-04-29 06:11] LABS: Hematocrit 27 % (42-52); Hemoglobin 8.9 g/dL (14.0-18.0); Mean Corpuscular HGB Conc 33 g/dL (31-36); Mean Corpuscular Hemoglobin 30 pg (27-31); Mean Corpuscular Volume 91 fL (80-94); Mean Platelet Volume 8.8 fL (7.4-10.4); Platelet Count 341 10^3/uL (150-450); Red Blood Count 2.95 10^6 /uL (4.18-5.48); Red Cell Distribution Width 18 % (10-15); White Blood Count 14.7 10^3/uL (3.5-10.8)
[2020-04-29 06:21] LABS: BUN/Creatinine Ratio 22.8 (8-20); Calcium 8.7 mg/dL (8.6-10.3); EGFR African American 131.4 (>60); EGFR Non-African American 108.6 (>60); Magnesium 1.7 mg/dL (1.9-2.7)
[2020-04-29 06:22] LABS: Potassium 5.1 mmol/L (3.5-5.0)
[2020-04-29] MEDS: Polyethylene Glycol 3350 17 GM PACKET PO SCH (08:14)
[2020-04-29] MEDS: Enoxaparin 80 MG/0.8 ML SYR SUBCUT SCH ×2 (08:14→20:14)
[2020-04-29] MEDS: Sucralfate 1 gm SUSP 1 GM/10 ML UDC PO SCH ×3 (08:14→15:47)
[2020-04-29] MEDS: Senna TAB 8.6 mg TAB PO SCH ×2 (08:16→20:13)
[2020-04-29] MEDS: Dexamethasone IV 4 MG/ML VIAL 1 ml VIAL IV SLOW PU SCH ×2 (08:17→15:47)
[2020-04-29 09:03] LABS: ABS Basophils 0.1 10^3/ul (0-0.2); ABS Lymphocytes 0.7 10^3/ul (1.0-4.8); ABS Monocytes 1.1 10^3/ul (0-0.8); ABS Neutrophils 12.8 10^3/ul (1.5-7.7); Eosinophil % 0.1 %; Lymphocyte % 4.6 %
[2020-04-29] MEDS ORDERED: Magnesium Sulf 4 GM/100 ML IV 4,000 MG/100 ML BAG IVPB ONE (10:31)
[2020-04-29 11:43] LABS: C Reactive Protein 111.2 mg/L (<8.01)
[2020-04-29] MEDS ORDERED: NS 0.9% 1000 ml BAG 1,000 ML IV SCH (15:31)
[2020-04-30 05:19] LABS: Hematocrit 26 % (42-52); Hemoglobin 8.5 g/dL (14.0-18.0); Mean Corpuscular HGB Conc 33 g/dL (31-36); Mean Corpuscular Hemoglobin 30 pg (27-31); Mean Corpuscular Volume 91 fL (80-94); Mean Platelet Volume 8.7 fL (7.4-10.4); Platelet Count 379 10^3/uL (150-450); Red Blood Count 2.83 10^6 /uL (4.18-5.48); Red Cell Distribution Width 18 % (10-15); White Blood Count 19.2 10^3/uL (3.5-10.8)
[2020-04-30 05:48] LABS: BUN/Creatinine Ratio 39.4 (8-20); Calcium 8.5 mg/dL (8.6-10.3); EGFR African American 148.7 (>60); EGFR Non-African American 122.9 (>60); Potassium 4.8 mmol/L (3.5-5.0)
[2020-04-30] MEDS: Scopolamine PATCH Remove NOTE PATCH OFF SCH (05:51)
[2020-04-30 07:22] LABS: ABS Basophils 0.1 10^3/ul (0-0.2); ABS Lymphocytes 0.8 10^3/ul (1.0-4.8); ABS Monocytes 1.3 10^3/ul (0-0.8); Eosinophil % 0.1 %; Lymphocyte % 4.3 %; Nucleated Red Blood Cells % 0.1
[2020-04-30] MEDS: Sucralfate 1 gm SUSP 1 GM/10 ML UDC PO SCH ×3 (08:40→17:32)
[2020-04-30] MEDS: Polyethylene Glycol 3350 17 GM PACKET PO SCH (08:52)
[2020-04-30] MEDS: Senna TAB 8.6 mg TAB PO SCH ×2 (08:54→20:11)
[2020-04-30] MEDS: Dexamethasone IV 4 MG/ML VIAL 1 ml VIAL IV SLOW PU SCH ×2 (08:58→14:30)
[2020-04-30] MEDS: Enoxaparin 80 MG/0.8 ML SYR SUBCUT SCH ×2 (09:03→20:13)
[2020-04-30 11:08] LABS: Albumin 2.9 g/dL (3.2-5.2); Total Protein 5.5 g/dL (6.4-8.9)
[2020-05-01] MEDS ORDERED: Magnesium Hydroxide LIQ 30 ML UDC PO PRN (06:56)
[2020-05-01 07:27] LABS: Hematocrit 28 % (42-52); Hemoglobin 9.2 g/dL (14.0-18.0); Mean Corpuscular HGB Conc 33 g/dL (31-36); Mean Corpuscular Hemoglobin 30 pg (27-31); Mean Corpuscular Volume 91 fL (80-94); Mean Platelet Volume 8.2 fL (7.4-10.4); Platelet Count 380 10^3/uL (150-450); Red Blood Count 3.12 10^6 /uL (4.18-5.48); Red Cell Distribution Width 18 % (10-15); White Blood Count 24.2 10^3/uL (3.5-10.8)
[2020-05-01 07:44] LABS: Albumin 2.9 g/dL (3.2-5.2); Albumin/Globulin Ratio 1.2 (1-3); BUN/Creatinine Ratio 37.2 (8-20); C Reactive Protein 19.84 mg/L (<8.01); Calcium 8.6 mg/dL (8.6-10.3); EGFR African American 133.4 (>60); EGFR Non-African American 110.2 (>60); Globulin 2.5 g/dL (2-4); Magnesium 1.4 mg/dL (1.9-2.7); Potassium 4.6 mmol/L (3.5-5.0); Total Bilirubin 0.3 mg/dL (0.2-1.0); Total Protein 5.4 g/dL (6.4-8.9)
[2020-05-01] MEDS: Sucralfate 1 gm SUSP 1 GM/10 ML UDC PO SCH ×3 (08:02→18:42)
[2020-05-01] MEDS: Senna TAB 8.6 mg TAB PO SCH ×2 (08:02→19:51)
[2020-05-01] MEDS: Enoxaparin 80 MG/0.8 ML SYR SUBCUT SCH ×2 (08:03→19:52)
[2020-05-01] MEDS: Dexamethasone IV 4 MG/ML VIAL 1 ml VIAL IV SLOW PU SCH ×2 (08:03→14:58)
[2020-05-01] MEDS: Polyethylene Glycol 3350 17 GM PACKET PO SCH (08:06)
[2020-05-01] MEDS ORDERED: Magnesium Sulf 4 GM/100 ML IV 4,000 MG/100 ML BAG IVPB ONE (08:30)
[2020-05-01 08:42] LABS: ABS Basophils 0.1 10^3/ul (0-0.2); ABS Lymphocytes 1.4 10^3/ul (1.0-4.8); ABS Monocytes 1.8 10^3/ul (0-0.8); ABS Neutrophils 20.9 10^3/ul (1.5-7.7); Eosinophil % 0.1 %; Lymphocyte % 5.6 %; Nucleated Red Blood Cells % 0.1
[2020-05-01 08:44] LABS: Polychromasia 1+
[2020-05-02 06:54] LABS: Hematocrit 30 % (42-52); Hemoglobin 9.8 g/dL (14.0-18.0); Mean Corpuscular HGB Conc 33 g/dL (31-36); Mean Corpuscular Hemoglobin 30 pg (27-31); Mean Corpuscular Volume 92 fL (80-94); Mean Platelet Volume 9.1 fL (7.4-10.4); Platelet Count 382 10^3/uL (150-450); Red Blood Count 3.27 10^6 /uL (4.18-5.48); Red Cell Distribution Width 18 % (10-15); White Blood Count 29.2 10^3/uL (3.5-10.8)
[2020-05-02 07:09] LABS: BUN/Creatinine Ratio 38.3 (8-20); Calcium 8.6 mg/dL (8.6-10.3); EGFR African American 127.7 (>60); EGFR Non-African American 105.5 (>60); Magnesium 1.7 mg/dL (1.9-2.7); Potassium 4.7 mmol/L (3.5-5.0)
[2020-05-02] MEDS: Ondansetron 4 mg VIAL 2 MG/ML 2 ml VIAL IV PRN (07:58)
[2020-05-02] MEDS: Enoxaparin 80 MG/0.8 ML SYR SUBCUT SCH ×2 (07:58→21:04)
[2020-05-02] MEDS: Dexamethasone IV 4 MG/ML VIAL 1 ml VIAL IV SLOW PU SCH ×2 (07:58→13:33)
[2020-05-02] MEDS: Senna TAB 8.6 mg TAB PO SCH ×2 (07:59→21:03)
[2020-05-02] MEDS: Polyethylene Glycol 3350 17 GM PACKET PO SCH (07:59)
[2020-05-02] MEDS: Sucralfate 1 gm SUSP 1 GM/10 ML UDC PO SCH ×3 (07:59→16:11)
[2020-05-02 08:18] LABS: ABS Basophils 0.1 10^3/ul (0-0.2); ABS Lymphocytes 1.3 10^3/ul (1.0-4.8); ABS Monocytes 2.4 10^3/ul (0-0.8); ABS Neutrophils 25.4 10^3/ul (1.5-7.7); ABS Nucleated RBC 0.1 10^3/ul; Eosinophil % 0.1 %; Lymphocyte % 4.5 %; Nucleated Red Blood Cells % 0.4; Polychromasia 1+
[2020-05-03] MEDS: Scopolamine PATCH Remove NOTE PATCH OFF SCH (06:07)
[2020-05-03 07:19] LABS: Hematocrit 32 % (42-52); Hemoglobin 10.2 g/dL (14.0-18.0); Mean Corpuscular HGB Conc 32 g/dL (31-36); Mean Corpuscular Hemoglobin 29 pg (27-31); Mean Corpuscular Volume 92 fL (80-94); Mean Platelet Volume 8.3 fL (7.4-10.4); Platelet Count 383 10^3/uL (150-450); Red Blood Count 3.46 10^6 /uL (4.18-5.48); Red Cell Distribution Width 19 % (10-15); White Blood Count 27.1 10^3/uL (3.5-10.8)
[2020-05-03 08:06] LABS: Polychromasia 1+
[2020-05-03 08:07] LABS: ABS Eosinophils 0.1 10^3/ul (0-0.6); ABS Lymphocytes 1.3 10^3/ul (1.0-4.8); ABS Monocytes 2.4 10^3/ul (0-0.8); ABS Neutrophils 23.4 10^3/ul (1.5-7.7); ABS Nucleated RBC 0.1 10^3/ul; Eosinophil % 0.3 %; Lymphocyte % 4.7 %; Nucleated Red Blood Cells % 0.4
[2020-05-03] MEDS: Senna TAB 8.6 mg TAB PO SCH ×2 (08:22→21:06)
[2020-05-03] MEDS: Ondansetron 4 mg VIAL 2 MG/ML 2 ml VIAL IV PRN ×2 (08:22→21:07)
[2020-05-03] MEDS: Enoxaparin 80 MG/0.8 ML SYR SUBCUT SCH ×2 (08:22→21:05)
[2020-05-03] MEDS: Polyethylene Glycol 3350 17 GM PACKET PO SCH (08:22)
[2020-05-03] MEDS: Sucralfate 1 gm SUSP 1 GM/10 ML UDC PO SCH ×3 (08:22→16:32)
[2020-05-04] MEDS: Sucralfate 1 gm SUSP 1 GM/10 ML UDC PO SCH ×3 (07:43→16:23)
[2020-05-04] MEDS: Ondansetron 4 mg VIAL 2 MG/ML 2 ml VIAL IV PRN (09:07)
[2020-05-04] MEDS: Senna TAB 8.6 mg TAB PO SCH ×2 (09:54→19:58)
[2020-05-04] MEDS: Enoxaparin 80 MG/0.8 ML SYR SUBCUT SCH ×2 (09:55→19:59)
[2020-05-04] MEDS: Polyethylene Glycol 3350 17 GM PACKET PO SCH (09:55)
[2020-05-05 05:46] LABS: Hematocrit 33 % (42-52); Hemoglobin 10.5 g/dL (14.0-18.0); Mean Corpuscular HGB Conc 32 g/dL (31-36); Mean Corpuscular Hemoglobin 30 pg (27-31); Mean Corpuscular Volume 92 fL (80-94); Mean Platelet Volume 8.1 fL (7.4-10.4); Platelet Count 346 10^3/uL (150-450); Red Blood Count 3.53 10^6 /uL (4.18-5.48); Red Cell Distribution Width 19 % (10-15)
[2020-05-05 06:28] LABS: Polychromasia 1+
[2020-05-05 06:30] LABS: ABS Basophils 0.1 10^3/ul (0-0.2); ABS Lymphocytes 0.9 10^3/ul (1.0-4.8); ABS Monocytes 1.9 10^3/ul (0-0.8); ABS Neutrophils 25.1 10^3/ul (1.5-7.7); Eosinophil % 0.1 %; Lymphocyte % 3.1 %; Nucleated Red Blood Cells % 0.1
[2020-05-05] MEDS: Sucralfate 1 gm SUSP 1 GM/10 ML UDC PO SCH ×2 (09:55→12:41)
[2020-05-05] MEDS: Enoxaparin 80 MG/0.8 ML SYR SUBCUT SCH (09:56)
[2020-05-05] MEDS: Senna TAB 8.6 mg TAB PO SCH (09:57)
[2020-05-05] MEDS: Polyethylene Glycol 3350 17 GM PACKET PO SCH (09:57)
[2020-05-05] MEDS: Ondansetron 4 mg VIAL 2 MG/ML 2 ml VIAL IV PRN (09:58)
[2020-05-05] MEDS ORDERED: Magnesium Sulf 4 GM/100 ML IV 4,000 MG/100 ML BAG IVPB ONE (12:00)
[2020-05-05 12:12] VITALS: BP 114/76
== END 2020-05-05 13:50 | DRG 682 ==
LOC: MED 22:39 → ED 22:39 → MED 04-21 07:11
PROVIDERS: ADMIT Student in an Organized Health Care Education/Training Program; ATTEND Internal Medicine

== ENCOUNTER 2020-05-05 14:32 | Inpatient (IN) ==
[2020-05-05] MEDS ORDERED: Senna TAB 8.6 mg TAB PO PRN (17:06)
[2020-05-05] MEDS ORDERED: Albuterol 2.5mg/3 ml (0.083%) NEB.SOLN INH PRN (17:06)
[2020-05-05] MEDS: Enoxaparin 80 MG/0.8 ML SYR SUBCUT SCH (17:57)
[2020-05-05] MEDS: Sucralfate 1 gm SUSP 1 GM/10 ML UDC PO SCH (19:56)
[2020-05-06] MEDS: Enoxaparin 80 MG/0.8 ML SYR SUBCUT SCH (06:27)
[2020-05-06] MEDS: Sucralfate 1 gm SUSP 1 GM/10 ML UDC PO SCH ×3 (08:14→16:26)
[2020-05-06] MEDS: Polyethylene Glycol 3350 17 GM PACKET PO PRN (08:15)
[2020-05-06 09:52] LABS: Hematocrit 33 % (42-52); Hemoglobin 10.8 g/dL (14.0-18.0); Mean Corpuscular HGB Conc 33 g/dL (31-36); Mean Corpuscular Hemoglobin 30 pg (27-31); Mean Corpuscular Volume 91 fL (80-94); Mean Platelet Volume 8.5 fL (7.4-10.4); Platelet Count 321 10^3/uL (150-450); Red Blood Count 3.66 10^6 /uL (4.18-5.48); Red Cell Distribution Width 20 % (10-15); White Blood Count 23.4 10^3/uL (3.5-10.8)
[2020-05-06 10:09] LABS: ABS Basophils 0.1 10^3/ul (0-0.2); ABS Eosinophils 0.4 10^3/ul (0-0.6); ABS Lymphocytes 0.7 10^3/ul (1.0-4.8); ABS Monocytes 1.9 10^3/ul (0-0.8); ABS Neutrophils 20.4 10^3/ul (1.5-7.7); Eosinophil % 1.5 %
[2020-05-06 10:58] LABS: Polychromasia 1+
[2020-05-06] MEDS: Ondansetron 4 mg VIAL 2 MG/ML 2 ml VIAL IV PRN ×2 (12:08→20:01)
[2020-05-06 15:01] LABS: Hematocrit 33 % (42-52); Hemoglobin 10.6 g/dL (14.0-18.0)
[2020-05-07 06:14] LABS: Hematocrit 33 % (42-52); Hemoglobin 10.7 g/dL (14.0-18.0); Mean Corpuscular HGB Conc 32 g/dL (31-36); Mean Corpuscular Hemoglobin 30 pg (27-31); Mean Corpuscular Volume 92 fL (80-94); Mean Platelet Volume 8.9 fL (7.4-10.4); Platelet Count 286 10^3/uL (150-450); Red Blood Count 3.61 10^6 /uL (4.18-5.48); Red Cell Distribution Width 19 % (10-15)
[2020-05-07 06:16] LABS: ABS Basophils 0.1 10^3/ul (0-0.2); ABS Eosinophils 0.4 10^3/ul (0-0.6); ABS Lymphocytes 0.6 10^3/ul (1.0-4.8); ABS Monocytes 1.7 10^3/ul (0-0.8); ABS Neutrophils 17.2 10^3/ul (1.5-7.7); Eosinophil % 1.9 %; Nucleated Red Blood Cells % 0.1
[2020-05-07] MEDS: Sucralfate 1 gm SUSP 1 GM/10 ML UDC PO SCH ×3 (08:04→16:27)
[2020-05-07] MEDS: Enoxaparin 80 MG/0.8 ML SYR SUBCUT SCH ×2 (08:06→20:59)
[2020-05-07] MEDS: Ondansetron 4 mg VIAL 2 MG/ML 2 ml VIAL IV PRN (13:20)
[2020-05-07] MEDS: Polyethylene Glycol 3350 17 GM PACKET PO PRN (13:20)
[2020-05-07] MEDS: Nystatin TOP POWDER 15 GM BTL TOPICAL SCH (20:59)
[2020-05-08] MEDS: Nystatin TOP POWDER 15 GM BTL TOPICAL SCH ×3 (07:52→19:19)
[2020-05-08] MEDS: Enoxaparin 80 MG/0.8 ML SYR SUBCUT SCH ×2 (07:52→19:08)
[2020-05-08] MEDS: Sucralfate 1 gm SUSP 1 GM/10 ML UDC PO SCH ×3 (07:53→17:44)
[2020-05-08 09:11] LABS: Hematocrit 33 % (42-52); Hemoglobin 10.9 g/dL (14.0-18.0); Mean Corpuscular HGB Conc 33 g/dL (31-36); Mean Corpuscular Hemoglobin 30 pg (27-31); Mean Corpuscular Volume 90 fL (80-94); Mean Platelet Volume 8.6 fL (7.4-10.4); Platelet Count 283 10^3/uL (150-450); Red Blood Count 3.66 10^6 /uL (4.18-5.48); Red Cell Distribution Width 19 % (10-15); White Blood Count 18.8 10^3/uL (3.5-10.8)
[2020-05-08 11:28] LABS: ABS Basophils 0.1 10^3/ul (0-0.2); ABS Eosinophils 0.2 10^3/ul (0-0.6); ABS Lymphocytes 0.6 10^3/ul (1.0-4.8); ABS Monocytes 1.5 10^3/ul (0-0.8); ABS Neutrophils 16.4 10^3/ul (1.5-7.7); Eosinophil % 1.2 %
[2020-05-08] MEDS: Scopolamine PATCH Remove NOTE PATCH OFF SCH (19:15)
[2020-05-09 06:52] LABS: Hematocrit 32 % (42-52); Hemoglobin 10.7 g/dL (14.0-18.0); Mean Corpuscular HGB Conc 33 g/dL (31-36); Mean Corpuscular Hemoglobin 30 pg (27-31); Mean Corpuscular Volume 90 fL (80-94); Mean Platelet Volume 8.2 fL (7.4-10.4); Platelet Count 271 10^3/uL (150-450); Red Blood Count 3.59 10^6 /uL (4.18-5.48); Red Cell Distribution Width 19 % (10-15); White Blood Count 16.1 10^3/uL (3.5-10.8)
[2020-05-09 07:13] LABS: BUN/Creatinine Ratio 39.2 (8-20); Calcium 8.4 mg/dL (8.6-10.3); EGFR African American 97.9 (>60); EGFR Non-African American 80.9 (>60); Potassium 4.7 mmol/L (3.5-5.0)
[2020-05-09 07:38] LABS: ABS Basophils 0.1 10^3/ul (0-0.2); ABS Eosinophils 0.4 10^3/ul (0-0.6); ABS Lymphocytes 0.4 10^3/ul (1.0-4.8); ABS Monocytes 1.3 10^3/ul (0-0.8); ABS Neutrophils 13.8 10^3/ul (1.5-7.7); Eosinophil % 2.5 %; Lymphocyte % 2.6 %
[2020-05-09] MEDS: Nystatin TOP POWDER 15 GM BTL TOPICAL SCH ×3 (07:40→21:53)
[2020-05-09] MEDS: Sucralfate 1 gm SUSP 1 GM/10 ML UDC PO SCH ×3 (07:40→16:07)
[2020-05-09] MEDS: Enoxaparin 80 MG/0.8 ML SYR SUBCUT SCH ×2 (07:41→21:50)
[2020-05-09] MEDS: Ondansetron 4 mg VIAL 2 MG/ML 2 ml VIAL IV PRN (07:53)
[2020-05-10] MEDS: Sucralfate 1 gm SUSP 1 GM/10 ML UDC PO SCH ×3 (08:05→17:17)
[2020-05-10] MEDS: Enoxaparin 80 MG/0.8 ML SYR SUBCUT SCH ×2 (09:12→22:13)
[2020-05-10] MEDS: Nystatin TOP POWDER 15 GM BTL TOPICAL SCH ×3 (09:15→23:36)
[2020-05-11] MEDS: Sucralfate 1 gm SUSP 1 GM/10 ML UDC PO SCH ×3 (11:32→16:42)
[2020-05-11] MEDS: Enoxaparin 80 MG/0.8 ML SYR SUBCUT SCH ×2 (11:32→21:37)
[2020-05-11] MEDS: Nystatin TOP POWDER 15 GM BTL TOPICAL SCH ×3 (11:35→21:30)
[2020-05-11] MEDS: Ondansetron 4 mg VIAL 2 MG/ML 2 ml VIAL IV PRN (11:35)
[2020-05-11] MEDS: Scopolamine PATCH Remove NOTE PATCH OFF SCH (21:44)
[2020-05-12 06:30] LABS: ABS Lymphocytes 0.2 10^3/ul (1.0-4.8); ABS Monocytes 0.3 10^3/ul (0-0.8); ABS Neutrophils 15.9 10^3/ul (1.5-7.7); Hematocrit 30 % (42-52); Hemoglobin 9.8 g/dL (14.0-18.0); Lymphocyte % 1.3 %; Mean Corpuscular HGB Conc 33 g/dL (31-36); Mean Corpuscular Hemoglobin 30 pg (27-31); Mean Corpuscular Volume 91 fL (80-94); Mean Platelet Volume 9.8 fL (7.4-10.4); Nucleated Red Blood Cells % 0.1; Platelet Count 246 10^3/uL (150-450); Red Blood Count 3.33 10^6 /uL (4.18-5.48); Red Cell Distribution Width 19 % (10-15); White Blood Count 16.4 10^3/uL (3.5-10.8)
[2020-05-12 06:39] LABS: Calcium 8.1 mg/dL (8.6-10.3)
[2020-05-12 06:44] LABS: EGFR African American 77.4 (>60)
[2020-05-12 06:50] LABS: Potassium 5.1 mmol/L (3.5-5.0)
[2020-05-12] MEDS: Sucralfate 1 gm SUSP 1 GM/10 ML UDC PO SCH ×3 (08:37→16:32)
[2020-05-12] MEDS: Enoxaparin 80 MG/0.8 ML SYR SUBCUT SCH ×2 (08:39→19:39)
[2020-05-12] MEDS: Nystatin TOP POWDER 15 GM BTL TOPICAL SCH ×2 (08:40→15:51)
[2020-05-12] MEDS: NS 0.9% 1000 ml BAG 1,000 ML IV SCH (08:49)
[2020-05-12] MEDS: Senna TAB 8.6 mg TAB PO SCH (19:38)
[2020-05-13] MEDS: NS 0.9% 1000 ml BAG 1,000 ML IV SCH ×2 (00:17→14:01)
[2020-05-13] MEDS: Nystatin TOP POWDER 15 GM BTL TOPICAL SCH ×4 (03:12→20:13)
[2020-05-13 06:28] LABS: ABS Lymphocytes 0.2 10^3/ul (1.0-4.8); ABS Monocytes 0.1 10^3/ul (0-0.8); Hematocrit 29 % (42-52); Hemoglobin 9.6 g/dL (14.0-18.0); Lymphocyte % 1.1 %; Mean Corpuscular HGB Conc 33 g/dL (31-36); Mean Corpuscular Hemoglobin 30 pg (27-31); Mean Corpuscular Volume 90 fL (80-94); Mean Platelet Volume 10.1 fL (7.4-10.4); Platelet Count 212 10^3/uL (150-450); Red Blood Count 3.23 10^6 /uL (4.18-5.48); Red Cell Distribution Width 19 % (10-15); White Blood Count 17.3 10^3/uL (3.5-10.8)
[2020-05-13 06:46] LABS: Albumin 2.7 g/dL (3.2-5.2); Albumin/Globulin Ratio 1.2 (1-3); BUN/Creatinine Ratio 56.4 (8-20); Calcium 7.8 mg/dL (8.6-10.3); EGFR African American 89.7 (>60); EGFR Non-African American 74.1 (>60); Globulin 2.3 g/dL (2-4); Magnesium 2.3 mg/dL (1.9-2.7); Potassium 4.7 mmol/L (3.5-5.0); Total Bilirubin 0.3 mg/dL (0.2-1.0)
[2020-05-13] MEDS: Sucralfate 1 gm SUSP 1 GM/10 ML UDC PO SCH ×3 (07:35→17:16)
[2020-05-13] MEDS: Enoxaparin 80 MG/0.8 ML SYR SUBCUT SCH ×2 (09:09→20:09)
[2020-05-13] MEDS: Senna TAB 8.6 mg TAB PO SCH (20:08)
[2020-05-14] MEDS: Sucralfate 1 gm SUSP 1 GM/10 ML UDC PO SCH ×3 (07:49→17:35)
[2020-05-14] MEDS: NS 0.9% 1000 ml BAG 1,000 ML IV SCH ×2 (07:51→21:57)
[2020-05-14] MEDS: Enoxaparin 80 MG/0.8 ML SYR SUBCUT SCH ×2 (08:57→21:04)
[2020-05-14] MEDS: Nystatin TOP POWDER 15 GM BTL TOPICAL SCH ×3 (09:04→21:04)
[2020-05-14 09:58] LABS: Albumin 2.8 g/dL (3.2-5.2); Albumin/Globulin Ratio 1.1 (1-3); BUN/Creatinine Ratio 56.7 (8-20); Calcium 8.1 mg/dL (8.6-10.3); EGFR African American 103.7 (>60); EGFR Non-African American 85.7 (>60); Globulin 2.5 g/dL (2-4); Potassium 4.9 mmol/L (3.5-5.0); Total Bilirubin 0.4 mg/dL (0.2-1.0); Total Protein 5.3 g/dL (6.4-8.9)
[2020-05-14] MEDS ORDERED: Senna TAB 8.6 mg TAB PO ONE (11:54)
[2020-05-14 13:42] LABS: Urine Appearance Turbid; Urine Blood 3+ (Negative); Urine Color Amber; Urine Ketones Negative (Negative); Urine Protein 1+(30 mg/dL) (Negative); Urine Specific Gravity 1.025 (1.010-1.030); Urine Urobilinogen Negative (Negative)
[2020-05-14 13:43] LABS: Urine Bilirubin Negative (Negative); Urine Glucose Negative (Negative); Urine Nitrite Negative (Negative)
[2020-05-14 13:55] LABS: Urine Bacteria Absent (Absent); Urine Red Blood Cell 3+(>10/hpf) (Absent); Urine White Blood Cell 3+(>20/hpf) (Absent)
[2020-05-14] MEDS: cefTRIAXone 1 gm/50 mL NS BAG 1 GM/50 ML BAG IVPB SCH (15:54)
[2020-05-14] MEDS: Senna TAB 8.6 mg TAB PO SCH (21:04)
[2020-05-14] MEDS: Scopolamine PATCH Remove NOTE PATCH OFF SCH (21:06)
[2020-05-14] MEDS: Magic MouthWash1-BEN/MAAL/LIDO 180 ML BTL SWISH SWAL PRN (22:51)
[2020-05-15] MEDS: Sucralfate 1 gm SUSP 1 GM/10 ML UDC PO SCH ×3 (08:00→17:21)
[2020-05-15 10:34] LABS: Corrected Retic Count 0.2 % (0.5-1.5); Hematocrit for Retic CNT 25 % (42-52); Immature Retic Fraction 0.16; RBC Retic Count 2.79 10^6/uL (4.18-5.48)
[2020-05-15] MEDS: Senna TAB 8.6 mg TAB PO SCH ×2 (10:43→21:49)
[2020-05-15] MEDS: NS 0.9% 1000 ml BAG 1,000 ML IV SCH (10:48)
[2020-05-15] MEDS: Polyethylene Glycol 3350 17 GM PACKET PO PRN (10:49)
[2020-05-15] MEDS: Magic MouthWash1-BEN/MAAL/LIDO 180 ML BTL SWISH SWAL PRN (11:04)
[2020-05-15] MEDS: Nystatin TOP POWDER 15 GM BTL TOPICAL SCH ×3 (11:04→20:16)
[2020-05-15] MEDS: Enoxaparin 80 MG/0.8 ML SYR SUBCUT SCH ×2 (11:08→21:47)
[2020-05-15 12:19] LABS: % Iron Saturation 71 % (15-55); Iron 130 ug/dL (50-212); Total Iron Binding Capacity 182 mcg/dL (250-450); Transferrin 130 mg/dL (203-362); Unsaturated Iron Binding < 167 ug/dL
[2020-05-15 12:39] LABS: Ferritin > 1500.0 ng/mL (24-336)
[2020-05-15] MEDS: cefTRIAXone 1 gm/50 mL NS BAG 1 GM/50 ML BAG IVPB SCH (15:06)
[2020-05-16] MEDS: NS 0.9% 1000 ml BAG 1,000 ML IV SCH (01:54)
[2020-05-16] MEDS: Senna TAB 8.6 mg TAB PO SCH ×2 (08:12→22:06)
[2020-05-16] MEDS: Enoxaparin 80 MG/0.8 ML SYR SUBCUT SCH ×2 (08:13→22:06)
[2020-05-16] MEDS: Nystatin TOP POWDER 15 GM BTL TOPICAL SCH ×3 (08:14→22:06)
[2020-05-16] MEDS: Sucralfate 1 gm SUSP 1 GM/10 ML UDC PO SCH ×3 (08:19→17:05)
[2020-05-16] MEDS: cefTRIAXone 1 gm/50 mL NS BAG 1 GM/50 ML BAG IVPB SCH (17:05)
[2020-05-16 17:18] LABS: ABS Eosinophils 0.2 10^3/ul (0-0.6); ABS Lymphocytes 0.2 10^3/ul (1.0-4.8); ABS Neutrophils 2.3 10^3/ul (1.5-7.7); Eosinophil % 5.6 %; Hematocrit 26 % (42-52); Hemoglobin 8.2 g/dL (14.0-18.0); Lymphocyte % 6.5 %; Mean Corpuscular HGB Conc 32 g/dL (31-36); Mean Corpuscular Hemoglobin 30 pg (27-31); Mean Corpuscular Volume 93 fL (80-94); Nucleated Red Blood Cells % 0.1; Platelet Count 119 10^3/uL (150-450); Red Blood Count 2.75 10^6 /uL (4.18-5.48); Red Cell Distribution Width 19 % (10-15); White Blood Count 2.7 10^3/uL (3.5-10.8)
[2020-05-17 06:40] LABS: ABS Eosinophils 0.2 10^3/ul (0-0.6); ABS Lymphocytes 0.3 10^3/ul (1.0-4.8); Eosinophil % 12.6 %; Hematocrit 24 % (42-52); Hemoglobin 7.8 g/dL (14.0-18.0); Lymphocyte % 19.5 %; Mean Corpuscular HGB Conc 33 g/dL (31-36); Mean Corpuscular Hemoglobin 30 pg (27-31); Mean Corpuscular Volume 90 fL (80-94); Mean Platelet Volume 9.9 fL (7.4-10.4); Platelet Count 105 10^3/uL (150-450); Red Blood Count 2.64 10^6 /uL (4.18-5.48); Red Cell Distribution Width 19 % (10-15); White Blood Count 1.5 10^3/uL (3.5-10.8)
[2020-05-17 06:59] LABS: Albumin 2.5 g/dL (3.2-5.2); Albumin/Globulin Ratio 1.1 (1-3); BUN/Creatinine Ratio 64.4 (8-20); Calcium 8.1 mg/dL (8.6-10.3); EGFR African American 184.1 (>60); EGFR Non-African American 152.1 (>60); Globulin 2.2 g/dL (2-4); Potassium 4.3 mmol/L (3.5-5.0); Total Bilirubin 0.3 mg/dL (0.2-1.0); Total Protein 4.7 g/dL (6.4-8.9)
[2020-05-17] MEDS: Ondansetron 4 mg VIAL 2 MG/ML 2 ml VIAL IV PRN ×2 (07:04→19:11)
[2020-05-17] MEDS: Nystatin TOP POWDER 15 GM BTL TOPICAL SCH ×3 (10:03→21:18)
[2020-05-17] MEDS: Enoxaparin 80 MG/0.8 ML SYR SUBCUT SCH ×2 (10:21→21:11)
[2020-05-17] MEDS: Sucralfate 1 gm SUSP 1 GM/10 ML UDC PO SCH ×3 (11:46→18:16)
[2020-05-17] MEDS: Senna TAB 8.6 mg TAB PO SCH ×2 (11:47→21:09)
[2020-05-17] MEDS: Magic MouthWash1-BEN/MAAL/LIDO 180 ML BTL SWISH SWAL SCH ×3 (14:32→21:12)
[2020-05-17] MEDS ORDERED: Morphine ORAL.SOLN 10 mg 2 mg/ml UDC 5 ml (10 mg) PO PRN (15:11)
[2020-05-17] MEDS: cefTRIAXone 1 gm/50 mL NS BAG 1 GM/50 ML BAG IVPB SCH (15:57)
[2020-05-17] MEDS: NS 0.9% 1000 ml BAG 1,000 ML IV SCH (15:58)
[2020-05-17] MEDS: Scopolamine PATCH Remove NOTE PATCH OFF SCH (21:09)
[2020-05-18] MEDS: NS 0.9% 1000 ml BAG 1,000 ML IV SCH (05:47)
[2020-05-18 07:16] LABS: ABS Neutrophils 0.3 10^3/ul (1.5-7.7); Hematocrit 24 % (42-52); Hemoglobin 7.8 g/dL (14.0-18.0); Mean Corpuscular HGB Conc 33 g/dL (31-36); Mean Corpuscular Hemoglobin 30 pg (27-31); Mean Corpuscular Volume 90 fL (80-94); Mean Platelet Volume 10.1 fL (7.4-10.4); Platelet Count 82 10^3/uL (150-450); Red Blood Count 2.63 10^6 /uL (4.18-5.48); Red Cell Distribution Width 18 % (10-15); White Blood Count 0.7 10^3/uL (3.5-10.8)
[2020-05-18 07:46] LABS: ABS Eosinophils 0.2 10^3/ul (0-0.6); ABS Lymphocytes 0.2 10^3/ul (1.0-4.8); Eosinophil % 25.1 %; Lymphocyte % 31.9 %; Nucleated Red Blood Cells % 0.1
[2020-05-18] MEDS: Nystatin TOP POWDER 15 GM BTL TOPICAL SCH ×3 (08:42→20:55)
[2020-05-18] MEDS: Magic MouthWash1-BEN/MAAL/LIDO 180 ML BTL SWISH SWAL SCH ×5 (08:42→20:55)
[2020-05-18] MEDS: Enoxaparin 80 MG/0.8 ML SYR SUBCUT SCH ×2 (08:43→20:53)
[2020-05-18] MEDS: Senna TAB 8.6 mg TAB PO SCH ×2 (09:49→20:53)
[2020-05-18] MEDS: Sucralfate 1 gm SUSP 1 GM/10 ML UDC PO SCH ×3 (09:49→17:19)
[2020-05-18] MEDS: cefTRIAXone 1 gm/50 mL NS BAG 1 GM/50 ML BAG IVPB SCH (15:33)
[2020-05-19] MEDS: Nystatin TOP POWDER 15 GM BTL TOPICAL SCH ×3 (08:29→20:27)
[2020-05-19] MEDS: Enoxaparin 80 MG/0.8 ML SYR SUBCUT SCH ×2 (08:31→20:27)
[2020-05-19] MEDS: Sucralfate 1 gm SUSP 1 GM/10 ML UDC PO SCH ×3 (08:37→18:05)
[2020-05-19] MEDS: Senna TAB 8.6 mg TAB PO SCH ×2 (08:39→20:28)
[2020-05-19] MEDS: Magic MouthWash1-BEN/MAAL/LIDO 180 ML BTL SWISH SWAL SCH ×4 (08:52→20:27)
[2020-05-19] MEDS: cefTRIAXone 1 gm/50 mL NS BAG 1 GM/50 ML BAG IVPB SCH (15:49)
[2020-05-19] MEDS: Nystatin SUSPENSION 100,000 UNITS/ML UDC PO SCH (20:26)
[2020-05-20] MEDS: Sucralfate 1 gm SUSP 1 GM/10 ML UDC PO SCH ×3 (11:08→17:12)
[2020-05-20] MEDS: Magic MouthWash1-BEN/MAAL/LIDO 180 ML BTL SWISH SWAL SCH ×4 (11:14→21:00)
[2020-05-20] MEDS: Enoxaparin 80 MG/0.8 ML SYR SUBCUT SCH ×2 (11:14→20:54)
[2020-05-20] MEDS: Nystatin TOP POWDER 15 GM BTL TOPICAL SCH ×3 (11:14→21:00)
[2020-05-20] MEDS: Senna TAB 8.6 mg TAB PO SCH ×2 (11:15→20:54)
[2020-05-20] MEDS: Nystatin SUSPENSION 100,000 UNITS/ML UDC PO SCH ×4 (11:15→20:54)
[2020-05-20] MEDS: cefTRIAXone 1 gm/50 mL NS BAG 1 GM/50 ML BAG IVPB SCH (15:18)
[2020-05-20] MEDS: Scopolamine PATCH Remove NOTE PATCH OFF SCH (21:05)
[2020-05-21 05:45] LABS: Hematocrit 18 % (42-52); Hemoglobin 5.9 g/dL (14.0-18.0); Mean Corpuscular HGB Conc 34 g/dL (31-36); Mean Corpuscular Hemoglobin 29 pg (27-31); Mean Corpuscular Volume 87 fL (80-94); Mean Platelet Volume 8.7 fL (7.4-10.4); Platelet Count 19 10^3/uL (150-450); Red Blood Count 2.02 10^6 /uL (4.18-5.48); Red Cell Distribution Width 18 % (10-15); White Blood Count 0.2 10^3/uL (3.5-10.8)
[2020-05-21 05:54] LABS: Albumin 2.5 g/dL (3.2-5.2); Albumin/Globulin Ratio 1.1 (1-3); BUN/Creatinine Ratio 34.2 (8-20); Calcium 8.3 mg/dL (8.6-10.3); EGFR African American 131.4 (>60); EGFR Non-African American 108.6 (>60); Globulin 2.3 g/dL (2-4); Total Bilirubin 0.6 mg/dL (0.2-1.0); Total Protein 4.8 g/dL (6.4-8.9)
[2020-05-21 08:14] LABS: ABS Lymphocytes 0.1 10^3/ul (1.0-4.8); Eosinophil % 7.1 %; Lymphocyte % 83.6 %
[2020-05-21] MEDS: Nystatin SUSPENSION 100,000 UNITS/ML UDC PO SCH ×4 (10:31→20:25)
[2020-05-21] MEDS: Sucralfate 1 gm SUSP 1 GM/10 ML UDC PO SCH ×3 (10:31→16:12)
[2020-05-21] MEDS: Magic MouthWash1-BEN/MAAL/LIDO 180 ML BTL SWISH SWAL SCH ×4 (10:31→20:25)
[2020-05-21] MEDS: Nystatin TOP POWDER 15 GM BTL TOPICAL SCH ×3 (10:32→20:29)
[2020-05-21] MEDS: Senna TAB 8.6 mg TAB PO SCH ×2 (10:32→20:25)
[2020-05-22 06:33] LABS: Hematocrit 23 % (42-52); Hemoglobin 8.1 g/dL (14.0-18.0); Mean Corpuscular HGB Conc 35 g/dL (31-36); Mean Corpuscular Hemoglobin 30 pg (27-31); Mean Corpuscular Volume 86 fL (80-94); Mean Platelet Volume 9.5 fL (7.4-10.4); Platelet Count 10 10^3/uL (150-450); Red Blood Count 2.71 10^6 /uL (4.18-5.48); Red Cell Distribution Width 16 % (10-15); White Blood Count 0.2 10^3/uL (3.5-10.8)
[2020-05-22 07:56] LABS: ABS Lymphocytes 0.1 10^3/ul (1.0-4.8); Eosinophil % 5.3 %; Lymphocyte % 68.7 %; Nucleated Red Blood Cells % 0.9
[2020-05-22] MEDS: Magic MouthWash1-BEN/MAAL/LIDO 180 ML BTL SWISH SWAL SCH ×2 (09:32→14:44)
[2020-05-22] MEDS: Senna TAB 8.6 mg TAB PO SCH (09:32)
[2020-05-22] MEDS: Nystatin TOP POWDER 15 GM BTL TOPICAL SCH ×2 (09:32→14:44)
[2020-05-22] MEDS: Sucralfate 1 gm SUSP 1 GM/10 ML UDC PO SCH ×2 (09:32→11:33)
[2020-05-22] MEDS: Nystatin SUSPENSION 100,000 UNITS/ML UDC PO SCH ×2 (09:32→14:44)
[2020-05-22] MEDS ORDERED: NS 0.9% 1000 ml BAG 1,000 ML IV SCH (10:30)
[2020-05-22] MEDS ORDERED: Levofloxacin 500 MG IVPREMIX 500 MG/100 ML BAG IVPB SCH (11:00)
[2020-05-22 15:35] VITALS: BP 127/86
== END 2020-05-22 15:37 | DRG 374 ==
LOC: MED 14:32 → MEDTELE 05-18 23:07
PROVIDERS: ADMIT Internal Medicine; ATTEND Internal Medicine

== ENCOUNTER 2020-05-22 16:36 | Inpatient (IN) ==
[2020-05-22] MEDS ORDERED: Polyethylene Glycol 3350 17 GM PACKET PO PRN (17:05)
[2020-05-22] MEDS ORDERED: Ondansetron 4 mg VIAL 2 MG/ML 2 ml VIAL IV PRN (17:08)
[2020-05-22] MEDS: Magic MouthWash2-BEN/MAAL/LIDO/NYST 240 ML BTL (alt formulation) SWISH SWAL SCH ×2 (18:34→19:24)
[2020-05-22] MEDS: NS 0.9% 1000 ml BAG 1,000 ML IV SCH (18:50)
[2020-05-22] MEDS: Nystatin TOP POWDER 15 GM BTL TOPICAL SCH (19:24)
[2020-05-22] MEDS: Senna TAB 8.6 mg TAB PO SCH (19:24)
[2020-05-23] MEDS: NS 0.9% 1000 ml BAG 1,000 ML IV SCH ×3 (02:52→13:25)
[2020-05-23 07:48] LABS: Hematocrit 21 % (42-52); Hemoglobin 7.2 g/dL (14.0-18.0); Mean Corpuscular HGB Conc 34 g/dL (31-36); Mean Corpuscular Hemoglobin 30 pg (27-31); Mean Corpuscular Volume 86 fL (80-94); Mean Platelet Volume 9.9 fL (7.4-10.4); Platelet Count 6 10^3/uL (150-450); Red Blood Count 2.45 10^6 /uL (4.18-5.48); Red Cell Distribution Width 16 % (10-15); White Blood Count 0.2 10^3/uL (3.5-10.8)
[2020-05-23 08:01] LABS: Albumin 2.5 g/dL (3.2-5.2); Albumin/Globulin Ratio 1.1 (1-3); BUN/Creatinine Ratio 36.3 (8-20); Calcium 7.9 mg/dL (8.6-10.3); EGFR African American 129.5 (>60); EGFR Non-African American 107.1 (>60); Globulin 2.3 g/dL (2-4); Potassium 4.3 mmol/L (3.5-5.0); Total Bilirubin 0.6 mg/dL (0.2-1.0); Total Protein 4.8 g/dL (6.4-8.9)
[2020-05-23 08:18] LABS: ABS Lymphocytes 0.1 10^3/ul (1.0-4.8); ABS Neutrophils 0.1 10^3/ul (1.5-7.7); Eosinophil % 0.8 %; Lymphocyte % 59.4 %; Nucleated Red Blood Cells % 0.4
[2020-05-23] MEDS: Sucralfate 1 gm SUSP 1 GM/10 ML UDC PO SCH ×3 (08:50→17:11)
[2020-05-23] MEDS: Magic MouthWash2-BEN/MAAL/LIDO/NYST 240 ML BTL (alt formulation) SWISH SWAL SCH ×4 (08:51→19:34)
[2020-05-23] MEDS: Nystatin TOP POWDER 15 GM BTL TOPICAL SCH ×3 (08:52→19:34)
[2020-05-23] MEDS: Senna TAB 8.6 mg TAB PO SCH ×2 (08:53→19:34)
[2020-05-23] MEDS: Levofloxacin 500 MG IVPREMIX 500 MG/100 ML BAG IVPB SCH (13:09)
[2020-05-23 15:15] LABS: Mean Platelet Volume 8.2 fL (7.4-10.4); Platelet Count 30 10^3/uL (150-450)
[2020-05-24] MEDS: NS 0.9% 1000 ml BAG 1,000 ML IV SCH ×2 (01:40→08:32)
[2020-05-24 07:27] LABS: Albumin 2.5 g/dL (3.2-5.2); Albumin/Globulin Ratio 1.3 (1-3); BUN/Creatinine Ratio 33.6 (8-20); EGFR African American 84.4 (>60); EGFR Non-African American 69.7 (>60); Potassium 4.1 mmol/L (3.5-5.0); Total Bilirubin 0.6 mg/dL (0.2-1.0); Total Protein 4.5 g/dL (6.4-8.9)
[2020-05-24 07:53] LABS: Hematocrit 19 % (42-52); Hemoglobin 6.5 g/dL (14.0-18.0); Mean Corpuscular HGB Conc 35 g/dL (31-36); Mean Corpuscular Hemoglobin 30 pg (27-31); Mean Corpuscular Volume 86 fL (80-94); Mean Platelet Volume 8.6 fL (7.4-10.4); Platelet Count 19 10^3/uL (150-450); Red Blood Count 2.16 10^6 /uL (4.18-5.48); Red Cell Distribution Width 16 % (10-15); White Blood Count 0.3 10^3/uL (3.5-10.8)
[2020-05-24] MEDS: Sucralfate 1 gm SUSP 1 GM/10 ML UDC PO SCH ×3 (08:31→16:06)
[2020-05-24 08:50] LABS: ABS Lymphocytes 0.1 10^3/ul (1.0-4.8); ABS Neutrophils 0.1 10^3/ul (1.5-7.7); Eosinophil % 0.6 %; Lymphocyte % 40.8 %; Nucleated Red Blood Cells % 2.6
[2020-05-24] MEDS: Morphine ORAL.SOLN 10 mg 2 mg/ml UDC 5 ml (10 mg) PO PRN (10:49)
[2020-05-24] MEDS: Magic MouthWash2-BEN/MAAL/LIDO/NYST 240 ML BTL (alt formulation) SWISH SWAL SCH ×4 (11:34→21:18)
[2020-05-24] MEDS: Senna TAB 8.6 mg TAB PO SCH ×2 (11:34→21:17)
[2020-05-24] MEDS: Nystatin TOP POWDER 15 GM BTL TOPICAL SCH ×3 (11:34→21:17)
[2020-05-24] MEDS: Levofloxacin 500 MG IVPREMIX 500 MG/100 ML BAG IVPB SCH (13:18)
[2020-05-24 15:03] LABS: Albumin 2.4 g/dL (3.2-5.2); Albumin/Globulin Ratio 1.2 (1-3); BUN/Creatinine Ratio 35.3 (8-20); Calcium 8.1 mg/dL (8.6-10.3); EGFR African American 84.4 (>60); EGFR Non-African American 69.7 (>60); Potassium 3.9 mmol/L (3.5-5.0); Total Bilirubin 1.1 mg/dL (0.2-1.0); Total Protein 4.4 g/dL (6.4-8.9)
[2020-05-24 15:16] LABS: Activated Partial Thrombo Time 26.7 seconds (26.0-38.0); INR 1.74 (0.82-1.09)
[2020-05-24] MEDS ORDERED: Furosemide 20 mg/2 ml IV VIAL IV ONE (16:37)
[2020-05-25] MEDS ORDERED: NS 0.9% 1000 ml BAG 1,000 ML IV SCH (00:25)
[2020-05-25 08:24] LABS: Mean Platelet Volume 8.6 fL (7.4-10.4); Platelet Count 34 10^3/uL (150-450)
[2020-05-25 09:45] LABS: Hematocrit 26 % (42-52); Hemoglobin 8.9 g/dL (14.0-18.0); Mean Corpuscular HGB Conc 35 g/dL (31-36); Mean Corpuscular Hemoglobin 29 pg (27-31); Mean Corpuscular Volume 85 fL (80-94); Mean Platelet Volume 7.9 fL (7.4-10.4); Platelet Count 31 10^3/uL (150-450); Red Blood Count 3.02 10^6 /uL (4.18-5.48); Red Cell Distribution Width 15 % (10-15); White Blood Count 0.6 10^3/uL (3.5-10.8)
[2020-05-25 09:46] LABS: ABS Neutrophils 0.4 10^3/ul (1.5-7.7)
[2020-05-25 09:58] LABS: Albumin 2.5 g/dL (3.2-5.2); Calcium 8.2 mg/dL (8.6-10.3); Potassium 3.7 mmol/L (3.5-5.0); Total Bilirubin 1.1 mg/dL (0.2-1.0)
[2020-05-25 10:04] LABS: Albumin/Globulin Ratio 1.2 (1-3); BUN/Creatinine Ratio 36.2 (8-20); EGFR African American 94.7 (>60); EGFR Non-African American 78.2 (>60); Globulin 2.1 g/dL (2-4); Total Protein 4.6 g/dL (6.4-8.9)
[2020-05-25 10:24] LABS: ABS Lymphocytes 0.1 10^3/ul (1.0-4.8); ABS Monocytes 0.1 10^3/ul (0-0.8); Eosinophil % 0.1 %
[2020-05-25] MEDS: Sucralfate 1 gm SUSP 1 GM/10 ML UDC PO SCH ×3 (11:05→15:47)
[2020-05-25] MEDS: Nystatin TOP POWDER 15 GM BTL TOPICAL SCH ×3 (11:08→21:14)
[2020-05-25] MEDS: Senna TAB 8.6 mg TAB PO SCH ×2 (11:08→21:15)
[2020-05-25] MEDS: Morphine ORAL.SOLN 10 mg 2 mg/ml UDC 5 ml (10 mg) PO PRN (11:13)
[2020-05-25] MEDS: Magic MouthWash2-BEN/MAAL/LIDO/NYST 240 ML BTL (alt formulation) SWISH SWAL SCH ×4 (11:14→21:19)
[2020-05-25] MEDS ORDERED: Lorazepam PYXIS KEY PRN (12:19)
[2020-05-25] MEDS: LORazepam 2 mg VIAL 1 ml IV PUSH PRN (13:02)
[2020-05-25] MEDS: Levofloxacin 500 MG IVPREMIX 500 MG/100 ML BAG IVPB SCH (13:02)
[2020-05-26 01:44] LABS: Mean Platelet Volume 7.7 fL (7.4-10.4); Platelet Count 42 10^3/uL (150-450)
[2020-05-26 06:09] LABS: Hematocrit 26 % (42-52); Hemoglobin 9.1 g/dL (14.0-18.0); Mean Corpuscular HGB Conc 35 g/dL (31-36); Mean Corpuscular Hemoglobin 30 pg (27-31); Mean Corpuscular Volume 85 fL (80-94); Platelet Count 41 10^3/uL (150-450); Red Blood Count 3.04 10^6 /uL (4.18-5.48); Red Cell Distribution Width 16 % (10-15); White Blood Count 2.4 10^3/uL (3.5-10.8)
[2020-05-26 06:22] LABS: Albumin 2.7 g/dL (3.2-5.2); Albumin/Globulin Ratio 1.4 (1-3); BUN/Creatinine Ratio 33.6 (8-20); Calcium 8.4 mg/dL (8.6-10.3); EGFR African American 69.6 (>60); EGFR Non-African American 57.5 (>60); Total Bilirubin 1.7 mg/dL (0.2-1.0); Total Protein 4.7 g/dL (6.4-8.9)
[2020-05-26 08:19] LABS: ABS Lymphocytes 0.3 10^3/ul (1.0-4.8); ABS Monocytes 0.2 10^3/ul (0-0.8); ABS Neutrophils 1.9 10^3/ul (1.5-7.7); Eosinophil % 0.2 %; Lymphocyte % 10.9 %; Nucleated Red Blood Cells % 1.7
[2020-05-26] MEDS ORDERED: NS 0.9% 1000 ml BAG 1,000 ML IV SCH (09:45)
[2020-05-26] MEDS: LORazepam 2 mg VIAL 1 ml IV PUSH PRN ×2 (10:06→20:09)
[2020-05-26] MEDS: Magic MouthWash2-BEN/MAAL/LIDO/NYST 240 ML BTL (alt formulation) SWISH SWAL SCH ×4 (12:40→23:49)
[2020-05-26] MEDS: Sucralfate 1 gm SUSP 1 GM/10 ML UDC PO SCH ×3 (12:40→17:49)
[2020-05-26] MEDS: Senna TAB 8.6 mg TAB PO SCH ×2 (12:41→23:49)
[2020-05-26] MEDS: Nystatin TOP POWDER 15 GM BTL TOPICAL SCH ×3 (12:41→23:53)
[2020-05-26] MEDS: Levofloxacin 500 MG IVPREMIX 500 MG/100 ML BAG IVPB SCH (13:46)
[2020-05-26] MEDS ORDERED: Magnesium Sulfate IV 3 GM in NS 0.9% 100 ml BAG 100 ML IVPB ONE (14:03)
[2020-05-26] MEDS ORDERED: Heparin DRIP 25,000 UNITS BAG 25,000 UNITS/500 ML BAG IV SCH (16:15)
[2020-05-26] MEDS ORDERED: Heparin 5000 UNITS/ML 1 mL VIAL IV SCH (17:00)
[2020-05-26] MEDS ORDERED: Metoprolol Tartrate 5 mg VIAL 5 ml VIAL (1 mg/ml) IV PRN (20:14)
[2020-05-27 05:26] LABS: Hematocrit 22 % (42-52); Hemoglobin 7.6 g/dL (14.0-18.0); Mean Corpuscular HGB Conc 35 g/dL (31-36); Mean Corpuscular Hemoglobin 30 pg (27-31); Mean Corpuscular Volume 85 fL (80-94); Mean Platelet Volume 8.8 fL (7.4-10.4); Platelet Count 32 10^3/uL (150-450); Red Blood Count 2.54 10^6 /uL (4.18-5.48); Red Cell Distribution Width 17 % (10-15)
[2020-05-27 05:41] LABS: Albumin 2.3 g/dL (3.2-5.2); Albumin/Globulin Ratio 1.3 (1-3); BUN/Creatinine Ratio 25.4 (8-20); Calcium 8.2 mg/dL (8.6-10.3); EGFR African American 35.8 (>60); EGFR Non-African American 29.6 (>60); Globulin 1.8 g/dL (2-4); Potassium 4.5 mmol/L (3.5-5.0); Total Bilirubin 1.3 mg/dL (0.2-1.0); Total Protein 4.1 g/dL (6.4-8.9)
[2020-05-27 07:43] LABS: ABS Lymphocytes 0.6 10^3/ul (1.0-4.8); ABS Monocytes 0.4 10^3/ul (0-0.8); ABS Neutrophils 5.4 10^3/ul (1.5-7.7); ABS Nucleated RBC 0.1 10^3/ul; Lymphocyte % 9.9 %; Nucleated Red Blood Cells % 0.7
[2020-05-27 10:10] VITALS: BP 75/48
[2020-05-27] MEDS: Sucralfate 1 gm SUSP 1 GM/10 ML UDC PO SCH ×2 (10:11→11:52)
[2020-05-27] MEDS: Senna TAB 8.6 mg TAB PO SCH (10:11)
[2020-05-27] MEDS: Nystatin TOP POWDER 15 GM BTL TOPICAL SCH ×2 (10:11→13:28)
[2020-05-27] MEDS: Magic MouthWash2-BEN/MAAL/LIDO/NYST 240 ML BTL (alt formulation) SWISH SWAL SCH ×2 (10:11→13:28)
[2020-05-27] MEDS: LORazepam 2 mg VIAL 1 ml IV PUSH PRN (11:51)
[2020-05-27] MEDS: Levofloxacin 500 MG IVPREMIX 500 MG/100 ML BAG IVPB SCH (12:24)
[2020-05-29 11:18] LABS: White Blood Count 6.6 10^3/uL (3.5-10.8)
== END 2020-05-27 13:50 | disposition expired | DRG 374 ==
LOC: MEDTELE 16:36 → ICU 05-26 12:45
PROVIDERS: ADMIT Internal Medicine Hematology & Oncology; ATTEND Internal Medicine Critical Care Medicine